=== PATIENT | female | born 1970 | race Caucasian/White ===

== ENCOUNTER 2016-05-25 07:01 | Emergency (ER) | payer OTHER ==
[~2016-05-25] VITALS: Ht 154.9 cm; Wt 71.6 kg
[~2016-05-25 07:01] MED LIST: IBUP-1428 PO; NAPR1TAB9 PO; OMEP20CA9 PO
[2016-05-25 07:05] VITALS: Ht 154.9 cm; Wt 71.6 kg
--- NOTE | 2016-05-25 09:00 | DIAGNOSTIC IMAGING REPORT ---
CHEST 2 VIEWS ROUTINE CLINICAL HISTORY: cough, chest congestion COMPARISON STUDY: 09/14/2014 FINDINGS: The cardiac and mediastinal contours are normal. There is no evidence of focal pulmonary consolidation. There is no evidence of failure. No pleural effusions are visualized.[ IMPRESSION: No active disease in the chest. Electronically signed by: Ulises Adams M.D. 05/25/2016 8:59 AM Dictated Date/Time: 05/25/2016 8:59 AM
[2016-05-25 09:27] VITALS: BP 120/70; PULSE 96; TEMP 36.8; O2SAT 99
[2016-05-25] MEDS ORDERED: ALBUTEROL HFA 8 GM INHALER INH ONE (09:30)
--- NOTE | 2016-05-26 17:10 | EMERGENCY ROOM VISIT NOTE ---
ED Visit Note First contact with patient: 08:04 CHIEF COMPLAINT: Cough, congestion, sore throat, difficulty breathing. HISTORY OF PRESENT ILLNESS: This 45-year-old white female patient complains of 8 days of gradual onset of an intermittent vigorous cough productive of white mucus. She states her chest feels congested. There is some discomfort under the sternum with coughing but no other chest pain. She has developed chills and shortness of breath when lying down. She complains that her throat is sore and that she has a lot of nasal congestion and drainage. The patient does smoke. She has been using OTC cough medication without improvement. She is also been using Tylenol and Motrin without improvement. She has a distant history of asthma but does not have an inhaler. She did speak with her PCPs office but was unable to get an appointment. REVIEW OF SYSTEMS: CARDIAC: No prior chest pain, sweating, shortness of breath, leg swelling, or irregular heart beat. GENERAL: No prior fever or chills, easy fatigue, loss of appetite, or significant weight change. GASTROINTESTINAL: No abdominal pain, vomiting, loss of appetite, or diarrhea.. PMH: Significant for history of asthma, chronic migraines, hemorrhagic ovarian cyst, and intermittent nausea Previous surgeries: Tonsillectomy Current medications: None Allergies: Amoxicillin, clavulanic acid, codeine, morphine, penicillin Family history: Significant for heart disease. Parents are living. SOCIAL HISTORY: Patient lives at home by herself. Employed. Positive tobacco use, positive EtOH use. PHYSICAL EXAM: Vital Signs: Reviewed Nurse's notes. Afebrile. Oxygen saturation is 98% on room air. MENTAL STATUS: Alert, oriented, coherent. NECK: Supple, non-tender. HEENT: Normocephalic atraumatic. Eyes PERRLA, EOMI. No conjunctiva or scleral injection. Ears TMs intact bilaterally with retraction on the right. No erythema or bulging. No hemotympanum. Canals are patent. Nares patent bilaterally with turbinate enlargement. Thick clear drainage bilaterally. No epistaxis. Oropharynx without erythema or exudate. Uvula midline, oral mucosa moist. No lesions present. Lymphatics are palpated without anterior or posterior chain enlargement or tenderness. CHEST: Good expansion bilaterally, symmetrical, no retractions. HEART: Regular and normal heart sounds, no murmur, gallop or rub. LUNGS: Breath sounds coarse and equal bilaterally. there are no rales, wheezes or areas of absent air entry. Frequent vigorous cough. EMERGENCY DEPARTMENT COURSE: Patient was given an albuterol inhaler and shown how to use it. DIAGNOSIS: Acute bronchitis DISCHARGE INSTRUCTIONS AND TREATMENT: Start using the albuterol inhaler 2 puffs every 4-6 hours as needed. Use a decongestant such as Mucinex or Mucinex D until symptoms resolve. Follow-up with her PCP as needed. Maintain hydration. Tylenol and Motrin every 6 hours as needed for discomfort. Delsym syrup can be used every 12 hours as needed for her cough. Return to the ED for any acute changes. She was reassured that I do not suspect pneumonia or PE at this time. Problem List Medical Problems: (1) Hemorrhagic cyst of ovary Status: Chronic (2) Migraine Status: Chronic (3) Tonsillectomy Status: Resolved Current/Historical Medications No Active Prescriptions or Reported Meds Allergies Coded Allergies: Amoxicillin (Verified Allergy, Severe, THROAT SWELLING, 05/25/16) Clavulanic Acid (Verified Allergy, Severe, THROAT SWELLING, 05/25/16) Penicillins (Verified Allergy, Severe, THROAT SWELLING, 05/25/16) Morphine (Verified Adverse Reaction, Intermediate, NAUSEA, 05/25/16) Codeine (Verified Adverse Reaction, Mild, VOMITING, 05/25/16) Vital Signs Date Time Temp Pulse Resp B/P Pulse Ox O2 Delivery O2 Flow Rate FiO2 05/25/16 09:27 36.8 96 20 120/70 99 Room Air 05/25/16 08:37 36.7 87 132/87 98 Room Air 05/25/16 07:05 37.0 90 18 145/85 98 Room Air Medications Administered Medications (Trade) Dose Ordered Sig/Alessandra Route Start Time Stop Time Status Last Admin Dose Admin Albuterol (Ventolin Hfa Inhaler) 2 puffs NOW ONCE INH 05/25/16 09:30 05/25/16 09:31 DC 05/25/16 09:35 2 PUFFS Departure Information Impression Primary Impression: Acute bronchitis Dispostion Home / Self-Care Prescriptions No Active Prescriptions or Reported Meds Forms ALBUTEROL INHALER INSTRUCTIONS, WORK / SCHOOL INSTRUCTIONS, HOME CARE DOCUMENTATION FORM, MOTRIN USE, TYLENOL USE, IMPORTANT VISIT INFORMATION Patient Instructions Bronchitis Acute , [facility] Additional Instructions Albuterol inhaler 2 puffs every 4-6 hours as needed for congestion/shortness of breath Use a decongestant suspect as Mucinex or Mucinex D until symptoms resolve Follow-up with your PCP as needed Maintain hydration Tylenol and Motrin every 6 hours as needed for discomfort Use Delsym syrup 2 teaspoons every 12 hours as needed for cough
== END 2016-05-25 09:44 | disposition home or self-care (01) ==
LOC: C.EDB 07:02
DX: J20.9 Acute bronchitis, unspecified (principal); F17.210 Nicotine dependence, cigarettes, uncomplicated

== ENCOUNTER 2016-09-18 21:09 | Emergency (ER) | payer OTHER ==
[~2016-09-18] VITALS: Ht 154.9 cm; Wt 70.6 kg
[2016-09-18 21:15] VITALS: TEMP 36.8; Ht 154.9 cm; Wt 70.6 kg
[2016-09-18] MEDS ORDERED: ONDANSETRON INJ 2 MG/ML 2 ML VIAL IV STA ×2 (21:29→22:40)
[2016-09-18] MEDS ORDERED: SODIUM CHLORIDE 0.9% 1000ML 1,000 ML IV STA (21:29)
[2016-09-18] MEDS ORDERED: SODIUM CHLORIDE 0.9% 1000ML 500 ML IV STA (21:29)
[2016-09-18 21:30] VITALS: O2SAT 95
[2016-09-18 21:52] LABS: BASO % 0.4 %; BASO ABS # 0.03 K/uL (0-0.2); COMPLETE YES; EOS % 1.1 %; HEMATOCRIT 33.7 % (37-47); IG% 0.1 %; LYMPH % 29.1 %; LYMPH ABS # 2.07 K/uL (1.2-3.4); MEAN CELL VOLUME 85.1 fL (80-100); MEAN CORPUSCULAR HEMOGLOBIN 28.3 pg (25-34); MEAN CORPUSCULAR HGB CONC 33.2 g/dl (32-36); MEAN PLATELET VOLUME 10.5 fL (7.4-10.4); MONO % 7.9 %; NEUT % 61.4 %; PLATELET COUNT 260 K/uL (130-400); RED BLOOD COUNT 3.96 M/uL (4.2-5.4); WHITE BLOOD COUNT 7.11 K/uL (4.8-10.8)
--- NOTE | 2016-09-18 21:59 | DIAGNOSTIC IMAGING REPORT ---
CHEST ONE VIEW PORTABLE CLINICAL HISTORY: Mental status, weakness, palpitations. COMPARISON STUDY: 05/25/2016 FINDINGS: The cardiac and mediastinal contours are normal. There is no evidence of focal pulmonary consolidation. There is no evidence of failure. No pleural effusions are visualized.[ IMPRESSION: No active disease in the chest. Electronically signed by: Ulises Adams M.D. 09/18/2016 9:58 PM Dictated Date/Time: 09/18/2016 9:58 PM
[2016-09-18 22:08] LABS: ALT/SGPT 27 U/L (12-78); BLOOD UREA NITROGEN 13 mg/dl (7-18); BUN/CREATININE RATIO 17.4 (10-20); CARBON DIOXIDE 25 mmol/L (21-32); CHLORIDE 106 mmol/L (98-107); CREATININE 0.73 mg/dl (0.60-1.20); GLUCOSE 86 mg/dl (70-99); MAGNESIUM 2.3 mg/dl (1.8-2.4); POTASSIUM 3.5 mmol/L (3.5-5.1); SODIUM 139 mmol/L (136-145)
[2016-09-18 22:19] LABS: ALKALINE PHOSPHATASE 69 U/L (45-117); AST/SGOT 18 U/L (15-37)
[2016-09-18 22:30] LABS: CALCIUM 8.8 mg/dl (8.5-10.1)
[2016-09-18] MEDS ORDERED: SODIUM CHLORIDE 0.9% 500ML 500 ML IV STA (23:42)
--- NOTE | 2016-09-19 00:02 | EMERGENCY ROOM VISIT NOTE ---
History Report prepared by Diana: Prasanna Read Under the Supervision of: Dr. Kieran Wright M.D. First contact with patient: 21:21 Chief Complaint: IRREGULAR HEARTBEAT Stated Complaint: HEART PALPATATIONS - NAUSEA History of Present Illness The patient is a 45 year old female who presents to the Emergency Room with complaints of intermittent heart palpitations for the past month. The patient describes a fluttering sensation. The palpitations are not exertional. The episodes have been becoming more frequent and usually last a few seconds. The patient does not have chest pain with the episodes. She does occasionally feel short of breath. Tonight the patient became very nauseous with her palpitations which prompted her visit to the ED. She has an appointment with her family physician tomorrow. The patient denies fevers, cough or congestion, hematemesis , or blood in her stools. The patient has never had palpitations before. She cut back on her caffeine consumption but the palpitations persisted. The patient has a history of anemia and H. Pylori infection. She denies history of thyroid disease. The patient has family history of CHF, hypertension, and stroke. Source of History: patient Onset: one month ago Position: other (heart) Quality: other (palpitations) Timing: intermittent Associated Symptoms: + SOB, + nausea, No fevers, No cough, No chest pain, No melena, No hematochezia Review of Systems See HPI for pertinent positives & negatives. A total of 10 systems reviewed and were otherwise negative. Past Medical & Surgical Medical Problems: (1) Hemorrhagic cyst of ovary (2) Migraine (3) Tonsillectomy Family History FH: heart disease Hypertension Stroke Social History Smoking Status: Never Smoker Alcohol Use: none Drug Use: none Marital Status: Housing Status: lives with family Occupation Status: employed Current/Historical Medications No Active Prescriptions or Reported Meds Allergies Coded Allergies: Amoxicillin (Verified Allergy, Severe, THROAT SWELLING, 09/18/16) Clavulanic Acid (Verified Allergy, Severe, THROAT SWELLING, 09/18/16) Penicillins (Verified Allergy, Severe, THROAT SWELLING, 09/18/16) Morphine (Verified Adverse Reaction, Intermediate, NAUSEA, 09/18/16) Codeine (Verified Adverse Reaction, Mild, VOMITING, 09/18/16) Physical Exam Vital Signs Date Time Temp Pulse Resp B/P (MAP) Pulse Ox O2 Delivery O2 Flow Rate FiO2 09/19/16 01:00 67 14 114/76 95 09/19/16 00:00 102/61 09/18/16 23:35 63 17 93 09/18/16 23:30 109/70 09/18/16 23:05 67 17 98 09/18/16 23:00 132/64 09/18/16 22:39 65 20 95 09/18/16 22:33 112/73 09/18/16 22:09 70 18 98 09/18/16 22:08 68 09/18/16 22:01 117/78 09/18/16 21:30 95 Room Air 09/18/16 21:25 95 Room Air 09/18/16 21:15 36.8 67 18 138/91 98 Room Air Physical Exam GENERAL: Patient is in no acute distress. HEENT: No acute trauma, normocephalic atraumatic, mucous membranes moist, no nasal congestion, no scleral icterus. NECK: No stridor, no adenopathy, no meningismus, trachea is midline. LUNGS: Clear to auscultation bilaterally, no wheeze, no rhonchi, breath sounds equal. HEART: Without murmurs gallops or rubs, regular rate and rhythm. ABDOMEN: Soft, nontender, bowel sounds positive, no hernias, no peritonitis. EXTREMITIES: No cyanosis or edema, full range of motion of all the joints without pain or difficulty, no signs for acute trauma. NEUROLOGIC: Oriented x 3, no acute motor or sensory deficits, no focal weakness. SKIN: No rash, no jaundice, no diaphoresis. Medical Decision & Procedures ER Provider Diagnostic Interpretation: X-ray results as stated below per interpretation by me and the radiologist: CHEST ONE VIEW PORTABLE CLINICAL HISTORY: Mental status, weakness, palpitations. COMPARISON STUDY: 05/25/2016 FINDINGS: The cardiac and mediastinal contours are normal. There is no evidence of focal pulmonary consolidation. There is no evidence of failure. No pleural effusions are visualized.[ IMPRESSION: No active disease in the chest. Electronically signed by: Ulises Adams M.D. 09/18/2016 9:58 PM Dictated Date/Time: 09/18/2016 9:58 PM Laboratory Results 09/18/16 21:40 Red Blood Count 3.96, Mean Corpuscular Volume 85.1, Mean Corpuscular Hemoglobin 28.3, Mean Corpuscular Hemoglobin Concent 33.2, Mean Platelet Volume 10.5, Neutrophils (%) (Auto) 61.4, Lymphocytes (%) (Auto) 29.1, Monocytes (%) (Auto) 7.9, Eosinophils (%) (Auto) 1.1, Basophils (%) (Auto) 0.4, Neutrophils # (Auto) 4.36, Lymphocytes # (Auto) 2.07, Monocytes # (Auto) 0.56, Eosinophils # (Auto) 0.08, Basophils # (Auto) 0.03 09/18/16 21:40 Test 09/18/16 00:00 09/18/16 21:40 Urine Color ORANGE Urine Appearance CLEAR (CLEAR) Urine pH 6.0 (4.5-7.5) Urine Specific [place] 1.011 (1.000-1.030) Urine Protein NEG (NEG) Urine Glucose (UA) NEG (NEG) Urine Ketones TRACE (NEG) Urine Occult Blood 3+ (NEG) Urine Nitrite NEG (NEG) Urine Bilirubin NEG (NEG) Urine Urobilinogen NEG (NEG) Urine Leukocyte Esterase TRACE (NEG) Urine WBC (Auto) 1-5 /hpf (0-5) Urine RBC (Auto) 0-4 /hpf (0-4) Urine Hyaline Casts (Auto) 0 /lpf (0-5) Urine Epithelial Cells (Auto) 10-20 /lpf (0-5) Urine Bacteria (Auto) NEG (NEG) White Blood Count 7.11 K/uL (4.8-10.8) Red Blood Count 3.96 M/uL (4.2-5.4) Hemoglobin 11.2 g/dL (12.0-16.0) Hematocrit 33.7 % (37-47) Mean Corpuscular Volume 85.1 fL (80-100) Mean Corpuscular Hemoglobin 28.3 pg (25-34) Mean Corpuscular Hemoglobin Concent 33.2 g/dl (32-36) Platelet Count 260 K/uL (130-400) Mean Platelet Volume 10.5 fL (7.4-10.4) Neutrophils (%) (Auto) 61.4 % Lymphocytes (%) (Auto) 29.1 % Monocytes (%) (Auto) 7.9 % Eosinophils (%) (Auto) 1.1 % Basophils (%) (Auto) 0.4 % Neutrophils # (Auto) 4.36 K/uL (1.4-6.5) Lymphocytes # (Auto) 2.07 K/uL (1.2-3.4) Monocytes # (Auto) 0.56 K/uL (0.11-0.59) Eosinophils # (Auto) 0.08 K/uL (0-0.5) Basophils # (Auto) 0.03 K/uL (0-0.2) RDW Standard Deviation 46.8 fL (36.4-46.3) RDW Coefficient of Variation 15.0 % (11.5-14.5) Immature Granulocyte % (Auto) 0.1 % Immature Granulocyte # (Auto) 0.01 K/uL (0.00-0.02) Anion Gap 8.0 mmol/L (3-11) Est Creatinine Clear Calc Drug Dose 86.5 ml/min Estimated GFR () 114.5 Estimated GFR (Non- 98.8 BUN/Creatinine Ratio 17.4 (10-20) Calcium Level 8.8 mg/dl (8.5-10.1) Magnesium Level 2.3 mg/dl (1.8-2.4) Total Bilirubin 1.2 mg/dl (0.2-1) Aspartate Amino Transf (AST/SGOT) 18 U/L (15-37) Alanine Aminotransferase (ALT/SGPT) 27 U/L (12-78) Alkaline Phosphatase 69 U/L (45-117) Troponin I < 0.015 ng/ml (0-0.045) Total Protein 7.6 gm/dl (6.4-8.2) Albumin 3.8 gm/dl (3.4-5.0) Globulin 3.8 gm/dl (2.5-4.0) Albumin/Globulin Ratio 1.0 (0.9-2) Thyroid Stimulating Hormone (TSH) 3.350 uIu/ml (0.300-4.500) Laboratory results reviewed by me. Medications Administered Medications (Trade) Dose Ordered Sig/Alessandra Route Start Time Stop Time Status Last Admin Dose Admin Sodium Chloride 500 ml @ 999 mls/hr Q31M STAT IV 09/18/16 21:29 09/18/16 21:59 DC 09/18/16 21:45 999 MLS/HR Ondansetron HCl (Zofran Inj) 4 mg NOW STAT IV 09/18/16 21:29 09/18/16 21:32 DC 09/18/16 21:45 4 MG Sodium Chloride 1,000 ml @ 200 mls/hr Q5H STAT IV 09/18/16 21:29 09/19/16 01:53 DC 09/18/16 21:45 200 MLS/HR Ondansetron HCl (Zofran Inj) 4 mg NOW STAT IV 09/18/16 22:40 09/18/16 22:41 DC 09/18/16 23:04 4 MG Sodium Chloride 500 ml @ 999 mls/hr Q31M STAT IV 09/18/16 23:42 09/19/16 00:12 DC 09/19/16 00:00 999 MLS/HR Ketorolac Tromethamine (Toradol Inj) 30 mg NOW STAT IV 09/19/16 00:15 09/19/16 00:17 DC 09/19/16 00:21 30 MG Ondansetron HCl (ZOFRAN ODT 4MG Home Pack) 1 homepack UD ONCE PO 09/19/16 00:45 09/19/16 00:46 DC 09/19/16 00:58 1 HOMEPACK ECG Indication: palpitations Rate (beats per minute): 65 Rhythm: normal sinus Findings: no acute ischemic change, no ectopy, other (no dysrhythmia) ED Course 2124: The patient was evaluated in room C9. A complete history and physical exam was performed. 9: NSS 1000 ml @ 200 mls/hr, Zofran 4 mg IV, NSS 500 ml @ 999 mls/hr. 2240: Zofran 4 mg IV. 2342: NSS 500 ml @ 999 mls/hr. 0015: Toradol 30 mg IV. 0035: Reassessed the patient. Discussed the workup with the patient. She verbalized understanding and agreement. The patient is ready for discharge. 0045: Zofran Odt 4 mg PO homepack. Medical Decision Differential diagnosis includes electrolyte imbalance, anemia, dehydration, hormonal changes, thyroid disorder, UTI, cardiomegaly or dysrhythmia. Blood Pressure Screening: Patient was found to have normal blood pressure on screening and does not require follow-up. Medication Reconciliation: I attest that I have personally reviewed the patient' s current medication list. There is no leukocytosis or concerning anemia. No significant electrolyte abnormality, kidney failure, hepatitis. The patient appears to be in a euthyroid state. Urinalysis shows some hematuria but the patient is on her menstrual cycle, no signs of infection. Chest x-ray shows no CHF or cardiomegaly. EKG shows a normal sinus rhythm, no acute ischemia, no dysrhythmia. Cardiac enzyme testing times one is not consistent with acute cardiac injury. Patient received IV Zofran for nausea, she was given IV saline for hydration. She received IV Toradol for some menstrual cramps. The patient presents with palpitations, her workup is benign. I do think she be discharged with outpatient follow-up. She may require a Holter monitor. She was encouraged to rest and to stay well-hydrated. If worsening, she can return. Impression Primary Impression: Palpitations Additional Impression: Nausea Scribe Attestation The scribe's documentation has been prepared under my direction and personally reviewed by me in its entirety. I confirm that the note above accurately reflects all work, treatment, procedures, and medical decision making performed by me. Departure Information Dispostion Home / Self-Care Prescriptions No Active Prescriptions or Reported Meds Referrals Justine Tello D.O. (PCP) Forms HOME CARE DOCUMENTATION FORM, IMPORTANT VISIT INFORMATION Patient Instructions My [facility] Additional Instructions zofran 1 tab every 6 hours for nausea fluids rest see your doctor for recheck tomorrow as scheduled--possible need for holter monitoring testing today was ok return if worsening Problem Qualifiers
[2016-09-19 00:06] LABS: MANUAL MICROSCOPIC REQUIRED? NO; REVIEW REQ? NO; URINE APPEARANCE CLEAR (CLEAR); URINE BILIRUBIN NEG (NEG); URINE COLOR ORANGE; URINE NITRITE NEG (NEG); URINE SPECIFIC GRAVITY 1.011 (1.000-1.030); UROBILINOGEN NEG (NEG); ZZUR CULT IF INDIC CLEAN CATCH NO
[2016-09-19] MEDS ORDERED: KETOROLAC TROMETHAMINE 30 MG/ML VIAL IV STA (00:15)
[2016-09-19] MEDS ORDERED: ONDANSETRON HOME PACK 4MG OD TAB PO ONE (00:45)
[2016-09-19 01:00] VITALS: BP 114/76; PULSE 67; O2SAT 95
== END 2016-09-19 01:00 | disposition home or self-care (01) ==
LOC: C.EDB 21:10 → C.EDC 09-19 01:00
DX: R00.2 Palpitations (principal); R11.0 Nausea; Z82.49 Family history of ischemic heart disease and other diseases of the circulatory system

== ENCOUNTER → 2016-09-20 | Outpatient (CLI) | payer OTHER ==
[~2016-09-20] MED LIST changes: +ACET-1311 PO; +IBUP-1050 PO; -IBUP-1428 PO; -NAPR1TAB9 PO; -OMEP20CA9 PO; +ONDA4TAB10 SL; +OXYC1TAB3 PO
[2016-09-20 15:17] LABS: CHOLESTEROL/HDL RATIO 2.5
== END | disposition home or self-care (01) ==
LOC: C.LAB 14:08
PROVIDERS: ATTEND Student in an Organized Health Care Education/Training Program
DX: Z13.220 Encounter for screening for lipoid disorders (principal); Z13.1 Encounter for screening for diabetes mellitus

== ENCOUNTER → 2016-12-09 | Outpatient (CLI) | payer OTHER ==
[2016-12-09 16:40] LABS: PREG INTERNAL NEGATIVE QC NEG CLEAR BACKGROUND; PREG INTERNAL POSITIVE QC POS CONTROL LINE
[2016-12-09 16:43] LABS: URINE APPEARANCE CLEAR (CLEAR); URINE BILIRUBIN NEG (NEG); URINE COLOR DK YELLOW; URINE NITRITE NEG (NEG); URINE SPECIFIC GRAVITY 1.033 (1.000-1.030); UROBILINOGEN NEG (NEG)
[2016-12-09 16:44] LABS: MANUAL MICROSCOPIC REQUIRED? NO; REVIEW REQ? NO
== END | disposition home or self-care (01) ==
LOC: C.LABSPEC 15:42
PROVIDERS: ATTEND Obstetrics & Gynecology
DX: R10.32 Left lower quadrant pain (principal)

== ENCOUNTER → 2016-12-27 | Outpatient (CLI) | payer OTHER ==
[2016-12-27 16:51] LABS: URINE APPEARANCE CLEAR (CLEAR); URINE BILIRUBIN NEG (NEG); URINE COLOR YELLOW; URINE EPITHELIAL CELL AUTO >30 /lpf (0-5); URINE NITRITE NEG (NEG); URINE SPECIFIC GRAVITY 1.033 (1.000-1.030); UROBILINOGEN NEG (NEG)
[2016-12-27 16:52] LABS: MANUAL MICROSCOPIC REQUIRED? NO; REVIEW REQ? NO
== END | disposition home or self-care (01) ==
LOC: C.LAB 13:17
PROVIDERS: ATTEND Family Medicine
DX: R10.9 Unspecified abdominal pain (principal)

== ENCOUNTER → 2017-01-01 | Outpatient (CLI) | payer OTHER ==
--- NOTE | 2017-01-01 12:38 | DIAGNOSTIC IMAGING REPORT ---
RENAL ULTRASOUND HISTORY: LEFT FLANK PAIN COMPARISON: Abdominal and pelvis CT 10/08/2015. FINDINGS: Right kidney: 11.1 cm. No hydronephrosis. Normal corticomedullary differentiation and cortical thickness. Left kidney: 11.1 cm. No hydronephrosis. Normal corticomedullary differentiation and cortical thickness. Bladder: No bladder wall thickening. The ureteral jets are not identified during the examination. Hepatic steatosis. IMPRESSION: Normal renal ultrasound. Hepatic steatosis. Electronically signed by: Doe Loco M.D. 01/01/2017 12:37 PM Dictated Date/Time: 01/01/2017 12:36 PM
== END ==
LOC: C.ULTR 11:49
PROVIDERS: ATTEND Family Medicine
DX: R10.9 Unspecified abdominal pain (principal)

== ENCOUNTER 2017-03-08 15:31 | Emergency (ER) | payer OTHER ==
[~2017-03-08] VITALS: Ht 154.9 cm; Wt 72.9 kg
[2017-03-08 15:43] VITALS: TEMP 36.8; Ht 154.9 cm; Wt 72.9 kg
[2017-03-08] MEDS ORDERED: SODIUM CHLORIDE 0.9% 1000ML 1,000 ML IV STA (16:10)
[2017-03-08] MEDS ORDERED: ONDANSETRON INJ 2 MG/ML 2 ML VIAL IV STA (16:10)
[2017-03-08] MEDS ORDERED: FENTANYL CITRATE INJ 50 MCG/1 ML 2 ML VIAL IV PRN (16:15)
--- NOTE | 2017-03-08 16:26 | EMERGENCY ROOM VISIT NOTE ---
History Report prepared by Diana: Zayra Loza Under the Supervision of: Dr. Vlad Dunne D.O. First contact with patient: 16:07 Chief Complaint: PELVIC PAIN Stated Complaint: MISSED 1 [address] [address] AND HEAVY MENSES PAIN RLQ History of Present Illness The patient is a 46 year old female who presents to the Emergency Room with complaints of worsening left sided pelvic pain beginning this morning. The patient states she is usually early for her period but her period began 7 days late this cycle. She reports when her period started yesterday, seven days late , she was only spotting. Today, the patient reports heavy bleeding with clots which is abnormal for her. She notes going through 4 pads and having nausea. She has a history of ovarian cysts but states her pain then is unlike when she had hemorrhagic cysts. The patient notes three previous pregnancies. Source of History: patient Associated Symptoms: + nausea Review of Systems See HPI for pertinent positives & negatives. A total of 10 systems reviewed and were otherwise negative. Past Medical & Surgical Medical Problems: (1) Hemorrhagic cyst of ovary (2) Migraine (3) Tonsillectomy Family History FH: heart disease Hypertension Stroke Social History Smoking Status: Never Smoker Alcohol Use: none Drug Use: none Marital Status: Housing Status: lives with family Occupation Status: employed Current/Historical Medications Scheduled Ondasetron Odt (Zofran Odt), 4 MG SL Q6H Scheduled PRN Acetaminophen (Tylenol), 650 MG PO Q4H PRN for Pain or Fever Ibuprofen (Advil), 200-600 MG PO Q4H PRN for Pain or Fever Oxycodone Immediate Rel Tab (Roxicodone Ir), 1 TAB PO Q6 PRN for Severe Pain Allergies Coded Allergies: Amoxicillin (Verified Allergy, Severe, THROAT SWELLING, 03/08/17) Clavulanic Acid (Verified Allergy, Severe, THROAT SWELLING, 03/08/17) Penicillins (Verified Allergy, Severe, THROAT SWELLING, 03/08/17) Morphine (Verified Adverse Reaction, Intermediate, NAUSEA, 03/08/17) Codeine (Verified Adverse Reaction, Mild, VOMITING, 03/08/17) Physical Exam Vital Signs Date Time Temp Pulse Resp B/P (MAP) Pulse Ox O2 Delivery O2 Flow Rate FiO2 03/08/17 19:19 71 16 126/73 100 Room Air 03/08/17 18:11 58 18 109/72 98 Room Air 03/08/17 17:08 64 03/08/17 17:08 98 Room Air 03/08/17 15:43 36.8 75 20 135/71 96 Room Air Physical Exam GENERAL: Patient is awake, alert, and in no acute distress. Patient is anxious and uncomfortable. EYES: The conjunctivae are clear. The pupils are round and reactive. EARS, NOSE, MOUTH AND THROAT: The nose is without any evidence of any deformity. Mucous membranes are moist tongue is midline NECK: The neck is nontender and supple. RESPIRATORY: Normal respiratory effort is noted there is no evidence of wheezing rhonchi or rales CARDIOVASCULAR: Regular rate and rhythm noted there no murmurs rubs or gallops normal S1 normal S2 GASTROINTESTINAL: The abdomen is mildly distended but soft. Bowel sounds are present in all quadrants. Abdomen is nontender BACK: Left suprapubic tenderness, no midline tenderness noted. Left CVA tenderness noted. MUSCULOSKELETAL/EXTREMITIES: There is no evidence of gross deformity full range of motion is noted in the hips and shoulders SKIN: There is no obvious evidence of any rash. There are no petechiae, pallor or cyanosis noted. NEUROLOGIC: Patient is awake alert and oriented x3 strength is symmetric patellar reflexes are 2+ bilaterally Medical Decision & Procedures ER Provider Diagnostic Interpretation: Radiology results as stated below per my review and radiologist interpretation: PELVIC ULTRASOUND FINDINGS: The uterus measures 8.5 x 5.7 x 6.1 cm. Endometrium measures 8 mm in thickness. The right ovary is sonographically normal, measuring 2.7 x 2 x 1.4 cm. The left ovary measures 4.8 x 2.9 x 5 cm. A 3.1 cm left ovarian cyst is noted. There is an additional cyst or dominant follicle that measures 2.3 cm. Color flow is identified within each ovary. Trace free fluid is likely physiologic. IMPRESSION: 1. Endometrial thickness of 8 mm which is within normal limits if premenopausal. 2. 3.1 cm suspected left ovarian cyst with an additional cyst or dominant follicle within the left ovary. A follow-up pelvic ultrasound in 6 weeks to ensure resolution is recommended however these have benign imaging characteristics. Electronically signed by: Gino Rider M.D. Laboratory Results 03/08/17 16:35 Red Blood Count 3.99, Mean Corpuscular Volume 84.7, Mean Corpuscular Hemoglobin 26.8, Mean Corpuscular Hemoglobin Concent 31.7, Mean Platelet Volume 10.8, Neutrophils (%) (Auto) 64.5, Lymphocytes (%) (Auto) 26.5, Monocytes (%) (Auto) 7.4, Eosinophils (%) (Auto) 1.0, Basophils (%) (Auto) 0.4, Neutrophils # (Auto) 5.42, Lymphocytes # (Auto) 2.23, Monocytes # (Auto) 0.62, Eosinophils # (Auto) 0.08, Basophils # (Auto) 0.03 03/08/17 16:35 Test 03/08/17 16:35 03/08/17 18:05 White Blood Count 8.40 K/uL (4.8-10.8) Red Blood Count 3.99 M/uL (4.2-5.4) Hemoglobin 10.7 g/dL (12.0-16.0) Hematocrit 33.8 % (37-47) Mean Corpuscular Volume 84.7 fL (80-100) Mean Corpuscular Hemoglobin 26.8 pg (25-34) Mean Corpuscular Hemoglobin Concent 31.7 g/dl (32-36) Platelet Count 267 K/uL (130-400) Mean Platelet Volume 10.8 fL (7.4-10.4) Neutrophils (%) (Auto) 64.5 % Lymphocytes (%) (Auto) 26.5 % Monocytes (%) (Auto) 7.4 % Eosinophils (%) (Auto) 1.0 % Basophils (%) (Auto) 0.4 % Neutrophils # (Auto) 5.42 K/uL (1.4-6.5) Lymphocytes # (Auto) 2.23 K/uL (1.2-3.4) Monocytes # (Auto) 0.62 K/uL (0.11-0.59) Eosinophils # (Auto) 0.08 K/uL (0-0.5) Basophils # (Auto) 0.03 K/uL (0-0.2) RDW Standard Deviation 50.5 fL (36.4-46.3) RDW Coefficient of Variation 16.3 % (11.5-14.5) Immature Granulocyte % (Auto) 0.2 % Immature Granulocyte # (Auto) 0.02 K/uL (0.00-0.02) Prothrombin Time 9.8 SECONDS (9.0-12.0) Prothromb Time International Ratio 0.9 (0.9-1.1) Activated Partial Thromboplast Time 24.5 SECONDS (21.0-31.0) Partial Thromboplastin Ratio 0.9 Anion Gap 2.0 mmol/L (3-11) Est Creatinine Clear Calc Drug Dose 68.3 ml/min Estimated GFR () 84.8 Estimated GFR (Non- 73.2 BUN/Creatinine Ratio 9.9 (10-20) Calcium Level 8.5 mg/dl (8.5-10.1) Total Bilirubin 0.8 mg/dl (0.2-1) Aspartate Amino Transf (AST/SGOT) 18 U/L (15-37) Alanine Aminotransferase (ALT/SGPT) 29 U/L (12-78) Alkaline Phosphatase 73 U/L (45-117) Total Protein 7.7 gm/dl (6.4-8.2) Albumin 3.6 gm/dl (3.4-5.0) Globulin 4.1 gm/dl (2.5-4.0) Albumin/Globulin Ratio 0.9 (0.9-2) Human Chorionic Gonadotropin, Qual NEG (NEG) Human Chorionic Gonadotropin, Quant < 1 mIU/mL Urine Color RED Urine Appearance CLOUDY (CLEAR) Urine pH 5.5 (4.5-7.5) Urine Specific [place] 1.013 (1.000-1.030) Urine Protein 1+ (NEG) Urine Glucose (UA) NEG (NEG) Urine Ketones NEG (NEG) Urine Occult Blood 3+ (NEG) Urine Nitrite NEG (NEG) Urine Bilirubin NEG (NEG) Urine Urobilinogen NEG (NEG) Urine Leukocyte Esterase MODERATE (NEG) Urine WBC (Auto) >30 /hpf (0-5) Urine RBC (Auto) >30 /hpf (0-4) Urine Hyaline Casts (Auto) 0 /lpf (0-5) Urine Epithelial Cells (Auto) >30 /lpf (0-5) Urine Bacteria (Auto) 1+ (NEG) Urine Renal Epithelial Cells /lpf (0-5) Urine Pathogenic Casts /lpf (0) Laboratory results per my review. Medications Administered Medications (Trade) Dose Ordered Sig/Alessandra Route Start Time Stop Time Status Last Admin Dose Admin Ondansetron HCl (Zofran Inj) 4 mg NOW STAT IV 03/08/17 16:10 03/08/17 16:13 DC 03/08/17 17:07 4 MG Sodium Chloride 1,000 ml @ 999 mls/hr Q1H1M STAT IV 03/08/17 16:10 03/08/17 17:10 DC 03/08/17 17:07 999 MLS/HR Fentanyl Citrate (Fentanyl Inj) 50 mcg Q20M PRN IV 03/08/17 16:15 03/08/17 19:42 DC 03/08/17 17:08 50 MCG Ketorolac Tromethamine (Toradol Inj) 30 mg NOW STAT IV 03/08/17 17:51 03/08/17 17:53 DC 03/08/17 18:22 30 MG Ondansetron HCl (Zofran Inj) 4 mg STK-MED ONCE .ROUTE 03/08/17 18:13 03/08/17 18:14 DC 03/08/17 18:23 4 MG Oxycodone HCl (Roxicodone Immediate Rel 5MG Home Pack) 1 homepack UD ONCE PO 03/08/17 19:00 03/08/17 19:01 DC 03/08/17 19:18 1 HOMEPACK Ondansetron HCl (ZOFRAN ODT 4MG Home Pack) 1 homepack UD ONCE PO 03/08/17 19:00 03/08/17 19:01 DC 03/08/17 19:18 1 HOMEPACK ED Course 1608: The patient was evaluated in room A9B. A complete history and physical examination were performed. 1610: Ordered NSS 1,000 ml @ 999 mls/hr IV, Zofran Inj 4 mg IV. 1615: Ordered Fentanyl Inj 50 mcg IV. 1751: Ordered Fentanyl Citrate 50 mcg IV. 1813: Ordered Zofran Inj 4 mg .ROUTE. 1900: Ordered Ondansetron HCl 1 homepack PO, Oxycodone HCl 1 homepack PO. 1905: Upon reevaluation, the patient is resting comfortably. I discussed the results and treatment plan with her. She verbalized agreement of the treatment plan. The patient was discharged home. Medical Decision Differential diagnosis: Etiologies such as ectopic , dysfunction uterine bleeding, bleeding dyscrasia, trauma, infection, as well as others were entertained. Nursing notes reviewed. The patient is a 46-year-old female who presented to the emergency department for evaluation of vaginal bleeding and left-sided pelvic pain. The patient thought she could be . The patient's process was negative. She was treated with IV fluids IV pain medicine and IV antiemetics. On subsequent reevaluation she was feeling much better. I discussed the patient's laboratory and radiographic studies with her. She was encouraged to rest and avoid any strenuous activity. She was also encouraged to call her family doctor and her primary [employer] physician to schedule a follow-up appointment. She also encouraged to return to the emergency department immediately if symptoms change worsen or the need arises. Medication Reconcilliation Current Medication List: was personally reviewed by me Blood Pressure Screening Patient's blood pressure: Normal blood pressure Impression Primary Impression: Vaginal bleeding Additional Impression: Ovarian cyst Scribe Attestation The scribe's documentation has been prepared under my direction and personally reviewed by me in its entirety. I confirm that the note above accurately reflects all work, treatment, procedures, and medical decision making performed by me. Departure Information Dispostion Home / Self-Care Prescriptions Ondasetron Odt (ZOFRAN ODT) 4 Mg Tab 4 MG SL Q6H for Nausea, #10 TAB Prov: Vlad Dunne, DO 03/08/17 Oxycodone Immediate Rel Tab (ROXICODONE IR) 5 Mg Tab 1 TAB PO Q6 Y for Severe Pain, #20 TAB Prov: Vlad Dunne, DO 03/08/17 Referrals Justine Tello D.O. (PCP) Forms HOME CARE DOCUMENTATION FORM, IMPORTANT VISIT INFORMATION, WORK / SCHOOL INSTRUCTIONS Patient Instructions Cysts Ovarian, ED Bleed Irregular Vaginal, [facility] Additional Instructions Rest and avoid any strenuous activity. Continue all medications as prescribed. Call your [employer] physician to schedule a follow-up appointment versus possible. Return to the emergency department immediately if symptoms change worsen or the need arises. Problem Qualifiers Additional Impression: Ovarian cyst Laterality: left Qualified Codes: N83.202 - Unspecified ovarian cyst, left side
[2017-03-08 16:55] LABS: BASO % 0.4 %; BASO ABS # 0.03 K/uL (0-0.2); COMPLETE YES; HEMATOCRIT 33.8 % (37-47); IG% 0.2 %; LYMPH % 26.5 %; LYMPH ABS # 2.23 K/uL (1.2-3.4); MEAN CELL VOLUME 84.7 fL (80-100); MEAN CORPUSCULAR HEMOGLOBIN 26.8 pg (25-34); MEAN CORPUSCULAR HGB CONC 31.7 g/dl (32-36); MEAN PLATELET VOLUME 10.8 fL (7.4-10.4); MONO % 7.4 %; NEUT % 64.5 %; PLATELET COUNT 267 K/uL (130-400); RED BLOOD COUNT 3.99 M/uL (4.2-5.4)
[2017-03-08 17:03] LABS: INR 0.9 (0.9-1.1); PARTIAL THROMBOPLASTIN RATIO 0.9; PROTHROMBIN TIME (PATIENT) 9.8 SECONDS (9.0-12.0)
[2017-03-08] MEDS ORDERED: ACET-1311 PO (17:03)
[2017-03-08] MEDS ORDERED: IBUP-1050 PO (17:03)
[2017-03-08 17:08] VITALS: O2SAT 98
[2017-03-08 17:14] LABS: PREG INTERNAL NEGATIVE QC NEG CLEAR BACKGROUND; PREG INTERNAL POSITIVE QC POS CONTROL LINE
[2017-03-08 17:17] LABS: BUN/CREATININE RATIO 9.9 (10-20); CALCIUM 8.5 mg/dl (8.5-10.1); CREATININE 0.93 mg/dl (0.60-1.20); POTASSIUM 3.8 mmol/L (3.5-5.1)
[2017-03-08 17:20] LABS: ALB/GLOB RATIO 0.9 (0.9-2)
[2017-03-08] MEDS ORDERED: KETOROLAC TROMETHAMINE 30 MG/ML VIAL IV STA (17:51)
--- NOTE | 2017-03-08 18:08 | DIAGNOSTIC IMAGING REPORT ---
PELVIC ULTRASOUND CLINICAL HISTORY: Bleeding. COMPARISON STUDY: Pelvic ultrasound July 26, [address] of the abdomen and pelvis October 08, 2015. TECHNIQUE: Transabdominal and transvaginal sonography of the pelvis was performed. FINDINGS: The uterus measures 8.5 x 5.7 x 6.1 cm. Endometrium measures 8 mm in thickness. The right ovary is sonographically normal, measuring 2.7 x 2 x 1.4 cm. The left ovary measures 4.8 x 2.9 x 5 cm. A 3.1 cm left ovarian cyst is noted. There is an additional cyst or dominant follicle that measures 2.3 cm. Color flow is identified within each ovary. Trace free fluid is likely physiologic. IMPRESSION: 1. Endometrial thickness of 8 mm which is within normal limits if premenopausal. 2. 3.1 cm suspected left ovarian cyst with an additional cyst or dominant follicle within the left ovary. A follow-up pelvic ultrasound in 6 weeks to ensure resolution is recommended however these have benign imaging characteristics. Electronically signed by: Gino Rider M.D. 03/08/2017 6:07 PM Dictated Date/Time: 03/08/2017 6:02 PM
[2017-03-08] MEDS ORDERED: ONDANSETRON INJ 2 MG/ML 2 ML VIAL ONE (18:13)
[2017-03-08 18:26] LABS: URINE BILIRUBIN NEG (NEG); URINE EPITHELIAL CELL AUTO >30 /lpf (0-5); URINE NITRITE NEG (NEG); URINE PH 5.5 (4.5-7.5); URINE SPECIFIC GRAVITY 1.013 (1.000-1.030); UROBILINOGEN NEG (NEG)
[2017-03-08 18:29] LABS: URINE APPEARANCE CLOUDY (CLEAR); URINE COLOR RED
[2017-03-08 18:30] LABS: MANUAL MICROSCOPIC REQUIRED? NO; REVIEW REQ? YES
[2017-03-08] MEDS ORDERED: OXYC1TAB3 PO (18:52)
[2017-03-08] MEDS ORDERED: ONDA4TAB10 SL (18:52)
[2017-03-08] MEDS ORDERED: ONDANSETRON HOME PACK 4MG OD TAB PO ONE (19:00)
[2017-03-08] MEDS ORDERED: OXYCODONE IR HOME PACK PO ONE (19:00)
[2017-03-08 19:19] VITALS: BP 126/73; PULSE 71; O2SAT 100
== END 2017-03-08 19:24 | disposition home or self-care (01) ==
LOC: C.EDB 15:32 → C.EDA 19:24
DX: N93.9 Abnormal uterine and vaginal bleeding, unspecified (principal); N83.202 Unspecified ovarian cyst, left side; Z82.49 Family history of ischemic heart disease and other diseases of the circulatory system; Z82.0 Family history of epilepsy and other diseases of the nervous system

== ENCOUNTER → 2017-04-16 | Outpatient (CLI) | payer OTHER ==
--- NOTE | 2017-04-16 08:52 | DIAGNOSTIC IMAGING REPORT ---
PELVIC COMPLETE NON OB HISTORY: 46 years-old Female OVARIAN BENIGN NEOPLASM 3.1 cm left ovarian cyst seen on comparison study. COMPARISON: Pelvic ultrasound 03/08/2017 TECHNIQUE: Multiple real-time sonogram images of the deep pelvic structures were obtained transabdominally and transvaginally assessing grayscale appearance and color spectral flow. FINDINGS: TRANSABDOMINAL: Anteflexed uterus measures 8.6 x 5.2 x 5.0 cm. TRANSVAGINAL: Left ovary measures 3.0 x 3.4 x 3.0 cm. Cystic appearing lesion within left ovary is seen measuring 2.0 x 1.8 x 2.0 cm suggesting a dominant follicle. Arterial inflow and venous outflow is seen within the left ovary. The right ovary measures 2.6 x 2.4 x 1.5 cm. There is a complex centrally hypoechoic lesion within the right ovary measuring 1.2 x 1.2 x 1.2 cm with probable follicle within the left ovary measuring up to 1.1 cm. No evidence of right ovarian torsion. Endometrium appears ill-defined and is mildly thickened, 1.8 cm. Trace free pelvic fluid, likely physiologic. IMPRESSION: 1. Ill-defined thickened endometrium measures up to 1.8 cm. 2. Hypoechoic mildly complex lesion of the right ovary measuring 1.2 cm suggests involuting follicle. 3. 2.0 cm cystic lesion of the left ovary suggests a follicle. Previously noted 3.1 cm left ovarian cystic lesion not identified. 4. No evidence of ovarian torsion. The above report was generated using voice recognition software. It may contain grammatical, syntax or spelling errors. Electronically signed by: Donnell Lewis M.D. 04/16/2017 8:50 AM Dictated Date/Time: 04/16/2017 8:46 AM
== END | disposition home or self-care (01) ==
LOC: C.ULTR 07:49
PROVIDERS: ATTEND Obstetrics & Gynecology
DX: D27.9 Benign neoplasm of unspecified ovary (principal)

== ENCOUNTER → 2017-04-24 | Outpatient (CLI) | payer OTHER | END | disposition home or self-care (01) | LOC: C.PAPS 13:36 | PROVIDERS: ATTEND Obstetrics & Gynecology | DX: Z12.4 Encounter for screening for malignant neoplasm of cervix (principal) ==

== ENCOUNTER → 2017-05-25 | Outpatient (CLI) | payer OTHER ==
[2017-05-25 10:25] LABS: FOLLICLE STIMULAT HORMONE 15.96 IU/L
== END | disposition home or self-care (01) ==
LOC: C.LAB 08:40
PROVIDERS: ATTEND Obstetrics & Gynecology
DX: N97.9 Female infertility, unspecified (principal)

== ENCOUNTER 2017-07-31 10:33 | Emergency (ER) | payer OTHER ==
[~2017-07-31] VITALS: Ht 154.9 cm; Wt 66.6 kg
[2017-07-31 10:46] VITALS: TEMP 36.7
[2017-07-31] MEDS ORDERED: SODIUM CHLORIDE 0.9% 1000ML 1,000 ML IV STA (11:05)
[2017-07-31] MEDS ORDERED: ONDANSETRON INJ 2 MG/ML 2 ML VIAL IV STA (11:08)
[2017-07-31 11:15] VITALS: O2SAT 98; Ht 154.9 cm; Wt 66.6 kg
[2017-07-31] MEDS ORDERED: FENTANYL CITRATE INJ 50 MCG/1 ML 2 ML VIAL IV PRN (11:15)
--- NOTE | 2017-07-31 11:15 | EMERGENCY ROOM VISIT NOTE ---
History Report prepared by Leannibe: Alicia Reza Under the Supervision of: Dr. Vlad Dunne D.O. First contact with patient: 10:51 Chief Complaint: VAGINAL BLEEDING Stated Complaint: POSSIBLE MISCARRIAGE History of Present Illness The patient is a 46 year old female who presents to the Emergency Room with complaints of persistent vaginal bleeding that started earlier this morning. She is 5 weeks with 3 positive tests. This morning she passed tissue and bleeding with clots. She also complains of abdominal cramping and some low back pain, rating her discomfort as a 7/10 in severity. Her last normal menstrual period was on June 20, 2017. She has been 3 times in the past and this is her 4th . She has never experienced a miscarriage or ectopic . Source of History: patient Onset: early this morning Position: pelvis (vagina) Quality: other (bleeding) Timing: other (persistent) Associated Symptoms: + abdominal pain, + back pain Review of Systems See HPI for pertinent positives & negatives. A total of 10 systems reviewed and were otherwise negative. Past Medical & Surgical Medical Problems: (1) Hemorrhagic cyst of ovary (2) Migraine (3) Tonsillectomy Family History FH: heart disease Hypertension Stroke Social History Smoking Status: Never Smoker Alcohol Use: none Drug Use: none Marital Status: Housing Status: lives with family Occupation Status: employed Current/Historical Medications Scheduled Docusate Sodium (Colace), 1 CAP PO QAM Multivit/Min/Iron/Fol Ac/Pren ( Vitamin), 1 TAB PO QAM Scheduled PRN Acetaminophen (Tylenol), 650 MG PO Q4H PRN for Pain or Fever Allergies Coded Allergies: Amoxicillin (Verified Allergy, Severe, THROAT SWELLING, 07/31/17) Clavulanic Acid (Verified Allergy, Severe, THROAT SWELLING, 07/31/17) Penicillins (Verified Allergy, Severe, THROAT SWELLING, 07/31/17) Morphine (Verified Adverse Reaction, Intermediate, NAUSEA, 07/31/17) Codeine (Verified Adverse Reaction, Mild, VOMITING, 07/31/17) Physical Exam Vital Signs Date Time Temp Pulse Resp B/P (MAP) Pulse Ox O2 Delivery O2 Flow Rate FiO2 07/31/17 13:00 74 16 127/60 99 07/31/17 11:15 98 Room Air 07/31/17 10:46 36.7 77 18 130/92 98 Room Air Physical Exam GENERAL: Patient is awake, alert, somewhat anxious appearing and appears to be uncomfortable. EYES: The conjunctivae are clear. The pupils are round and reactive. EARS, NOSE, MOUTH AND THROAT: The nose is without any evidence of any deformity. Mucous membranes are moist tongue is midline NECK: The neck is nontender and supple. RESPIRATORY: Normal respiratory effort is noted there is no evidence of wheezing rhonchi or rales CARDIOVASCULAR: Regular rate and rhythm noted there no murmurs rubs or gallops normal S1 normal S2 GASTROINTESTINAL: The abdomen is soft. Some LLQ abdominal tenderness to palpation, no guarding or rigidity. Bowel sounds are present in all quadrants. MUSCULOSKELETAL/EXTREMITIES: There is no evidence of gross deformity full range of motion is noted in the hips and shoulders SKIN: There is no obvious evidence of any rash. There are no petechiae, pallor or cyanosis noted. NEUROLOGIC: Patient is awake alert and oriented x3 Medical Decision & Procedures ER Provider Diagnostic Interpretation: Radiology results as stated below per my review and radiologist interpretation: <14 WKS SINGLE CLINICAL HISTORY: bleeding pelvic pain TECHNIQUE: Ultrasound COMPARISON STUDY: 04/16/2017 FINDINGS: Uterus is midline with a greatest dimension of 9 cm. Endometrial thickness is 9 mm. 5 mm cystic focus within the central endometrium. Right ovary measures 2.9 cm. Left ovary measures 3.1 cm. Normal vascular flow to the ovaries appear to centimeter left ovarian cyst. IMPRESSION: 1. Moderately thickened endometrium at 9 mm with a 5 mm central cystic focus. 2. This Potentially represents a simple endometrial cyst, versus an extremely early intrauterine gestational sac. 3. Correlation with quantitative beta hCGs as well as serial follow-up ultrasounds is suggested to exclude any possibility of an early intrauterine .. 4. 2 cm left ovarian cyst. The above report was generated using voice recognition software. It may contain grammatical, syntax or spelling errors. Electronically signed by: Darin Correia M.D. 07/31/2017 12:40 PM Laboratory Results 07/31/17 11:26 Red Blood Count 3.89, Mean Corpuscular Volume 81.2, Mean Corpuscular Hemoglobin 25.7, Mean Corpuscular Hemoglobin Concent 31.6, Mean Platelet Volume 9.9, Neutrophils (%) (Auto) 70.7, Lymphocytes (%) (Auto) 23.1, Monocytes (%) (Auto) 5.3, Eosinophils (%) (Auto) 0.4, Basophils (%) (Auto) 0.4, Neutrophils # (Auto) 4.91, Lymphocytes # (Auto) 1.61, Monocytes # (Auto) 0.37, Eosinophils # (Auto) 0.03, Basophils # (Auto) 0.03 07/31/17 11:26 Test 07/31/17 11:26 07/31/17 13:07 White Blood Count 6.96 K/uL (4.8-10.8) Red Blood Count 3.89 M/uL (4.2-5.4) Hemoglobin 10.0 g/dL (12.0-16.0) Hematocrit 31.6 % (37-47) Mean Corpuscular Volume 81.2 fL (80-100) Mean Corpuscular Hemoglobin 25.7 pg (25-34) Mean Corpuscular Hemoglobin Concent 31.6 g/dl (32-36) Platelet Count 273 K/uL (130-400) Mean Platelet Volume 9.9 fL (7.4-10.4) Neutrophils (%) (Auto) 70.7 % Lymphocytes (%) (Auto) 23.1 % Monocytes (%) (Auto) 5.3 % Eosinophils (%) (Auto) 0.4 % Basophils (%) (Auto) 0.4 % Neutrophils # (Auto) 4.91 K/uL (1.4-6.5) Lymphocytes # (Auto) 1.61 K/uL (1.2-3.4) Monocytes # (Auto) 0.37 K/uL (0.11-0.59) Eosinophils # (Auto) 0.03 K/uL (0-0.5) Basophils # (Auto) 0.03 K/uL (0-0.2) RDW Standard Deviation 49.9 fL (36.4-46.3) RDW Coefficient of Variation 16.9 % (11.5-14.5) Immature Granulocyte % (Auto) 0.1 % Immature Granulocyte # (Auto) 0.01 K/uL (0.00-0.02) Prothrombin Time 10.1 SECONDS (9.0-12.0) Prothromb Time International Ratio 1.0 (0.9-1.1) Activated Partial Thromboplast Time 24.9 SECONDS (21.0-31.0) Partial Thromboplastin Ratio 1.0 Anion Gap 5.0 mmol/L (3-11) Est Creatinine Clear Calc Drug Dose 90.6 ml/min Estimated GFR () 121.3 Estimated GFR (Non- 104.7 BUN/Creatinine Ratio 17.1 (10-20) Calcium Level 8.6 mg/dl (8.5-10.1) Total Bilirubin 0.9 mg/dl (0.2-1) Aspartate Amino Transf (AST/SGOT) 14 U/L (15-37) Alanine Aminotransferase (ALT/SGPT) 22 U/L (12-78) Alkaline Phosphatase 73 U/L (45-117) Total Protein 7.5 gm/dl (6.4-8.2) Albumin 3.7 gm/dl (3.4-5.0) Globulin 3.8 gm/dl (2.5-4.0) Albumin/Globulin Ratio 1.0 (0.9-2) Human Chorionic Gonadotropin, Quant 243 mIU/mL Urine Color ORANGE Urine Appearance CLEAR (CLEAR) Urine pH 5.5 (4.5-7.5) Urine Specific [place] 1.011 (1.000-1.030) Urine Protein NEG (NEG) Urine Glucose (UA) NEG (NEG) Urine Ketones 1+ (NEG) Urine Occult Blood 3+ (NEG) Urine Nitrite NEG (NEG) Urine Bilirubin NEG (NEG) Urine Urobilinogen NEG (NEG) Urine Leukocyte Esterase SMALL (NEG) Urine WBC (Auto) 5-10 /hpf (0-5) Urine RBC (Auto) >30 /hpf (0-4) Urine Hyaline Casts (Auto) 1-5 /lpf (0-5) Urine Epithelial Cells (Auto) 20-30 /lpf (0-5) Urine Bacteria (Auto) NEG (NEG) Laboratory results per my review. Medications Administered Medications (Trade) Dose Ordered Sig/Alessandra Route Start Time Stop Time Status Last Admin Dose Admin Sodium Chloride 1,000 ml @ 999 mls/hr Q1H1M STAT IV 07/31/17 11:05 07/31/17 12:05 DC 07/31/17 11:31 999 MLS/HR Ondansetron HCl (Zofran Inj) 4 mg NOW STAT IV 07/31/17 11:08 07/31/17 11:10 DC 07/31/17 11:31 4 MG Ketorolac Tromethamine (Toradol Inj) 30 mg NOW STAT IV 07/31/17 13:10 07/31/17 13:11 DC 07/31/17 13:16 30 MG ED Course 1103: The patient was evaluated in room C8. A complete history and physical examination were performed. 1105: NSS 1000 ml @ 999 mls/hr IV. 1108: Zofran 4 mg IV. 1115: Fentanyl 50 mcg IV. 1310: Toradol 30 mg IV. 1316: I discussed the patients case with Tevin Stout [employer] PRO[employer] ENGINEER. She will follow up with the patient in the office. 1325: I reevaluated the patient. She is feeling well and resting comfortably. I discussed her results and discharge instructions and she verbalized complete understanding and agreement. Medical Decision Prior records/ancillary studies reviewed. Triage Nursing notes reviewed. The patient's history was concerning for abdominal pain. Differential diagnosis: Etiologies such as appendicitis, diverticulitis, PUD, biliary pathology, UTI, pancreatitis, obstruction, mesenteric ischemia, aortic pathology, infections, inflammatory bowel disease, renal colic, as well as others were entertained. The patient is a 46-year-old female who presented to the emergency department for an evaluation of vaginal bleeding. The patient had some cramping as well as passage of possible products. This was sent to the lab for identification. I discussed patient's laboratory and radiographic studies with her. She was found to have anemia but has baseline anemia as well. Her vital signs reviewed. The patient also had a left ovarian cyst. I discussed this case with the patient's primary [employer] physician. At this time a repeat beta quant will be helpful in 48 hours. The patient was encouraged to follow-up for this laboratory study in 2 days but she was also encouraged to rest and avoid any strenuous activity and return to the emergency department immediately if symptoms change worsen or the need arises. Medication Reconcilliation Current Medication List: was personally reviewed by me Blood Pressure Screening Patient's blood pressure: Normal blood pressure Blood pressure disposition: Did not require urgent referral Consults Time Called: 1314 Consulting Physician: Tevin Stout [employer] PRO[employer] ENGINEER Returned Call: [phone] I discussed the patients case with Tevin Stout FEED PROJECT ENGINEER. She will follow up with the patient in the office. Impression Primary Impression: Threatened miscarriage Additional Impressions: Vaginal bleeding Ovarian cyst Scribe Attestation The scribe's documentation has been prepared under my direction and personally reviewed by me in its entirety. I confirm that the note above accurately reflects all work, treatment, procedures, and medical decision making performed by me. Departure Information Referrals Justine Tello D.O. (PCP) Patient Instructions My [facility] Problem Qualifiers Additional Impressions: Ovarian cyst Laterality: left Qualified Codes: N83.202 - Unspecified ovarian cyst, left side
[2017-07-31] MEDS ORDERED: DOCU-94 PO (11:46)
[2017-07-31] MEDS ORDERED: PRENTAB26 PO (11:46)
[2017-07-31 11:54] LABS: BASO % 0.4 %; BASO ABS # 0.03 K/uL (0-0.2); EOS % 0.4 %; EOS ABS # 0.03 K/uL (0-0.5); HEMATOCRIT 31.6 % (37-47); IG# 0.01 K/uL (0.00-0.02); LYMPH % 23.1 %; LYMPH ABS # 1.61 K/uL (1.2-3.4); MEAN CELL VOLUME 81.2 fL (80-100); MEAN CORPUSCULAR HEMOGLOBIN 25.7 pg (25-34); MEAN CORPUSCULAR HGB CONC 31.6 g/dl (32-36); MEAN PLATELET VOLUME 9.9 fL (7.4-10.4); MONO % 5.3 %; MONO ABS # 0.37 K/uL (0.11-0.59); NEUT % 70.7 %; NEUT ABS # 4.91 K/uL (1.4-6.5); PLATELET COUNT 273 K/uL (130-400); RED CELL DISTRIBUTION WIDTH CV 16.9 % (11.5-14.5); RED CELL DISTRIBUTION WIDTH SD 49.9 fL (36.4-46.3); WHITE BLOOD COUNT 6.96 K/uL (4.8-10.8)
[2017-07-31 11:55] LABS: PTT PATIENT 24.9 SECONDS (21.0-31.0)
[2017-07-31 12:05] LABS: ALBUMIN 3.7 gm/dl (3.4-5.0); CALCIUM 8.6 mg/dl (8.5-10.1); CREATININE 0.67 mg/dl (0.60-1.20); POTASSIUM 3.7 mmol/L (3.5-5.1)
[2017-07-31 12:08] LABS: TOTAL PROTEIN 7.5 gm/dl (6.4-8.2)
--- NOTE | 2017-07-31 12:42 | DIAGNOSTIC IMAGING REPORT ---
<14 WKS SINGLE CLINICAL HISTORY: bleeding pelvic pain TECHNIQUE: Ultrasound COMPARISON STUDY: 04/16/2017 FINDINGS: Uterus is midline with a greatest dimension of 9 cm. Endometrial thickness is 9 mm. 5 mm cystic focus within the central endometrium. Right ovary measures 2.9 cm. Left ovary measures 3.1 cm. Normal vascular flow to the ovaries appear to centimeter left ovarian cyst. IMPRESSION: 1. Moderately thickened endometrium at 9 mm with a 5 mm central cystic focus. 2. This Potentially represents a simple endometrial cyst, versus an extremely early intrauterine gestational sac. 3. Correlation with quantitative beta hCGs as well as serial follow-up ultrasounds is suggested to exclude any possibility of an early intrauterine .. 4. 2 cm left ovarian cyst. The above report was generated using voice recognition software. It may contain grammatical, syntax or spelling errors. Electronically signed by: Darin Correia M.D. 07/31/2017 12:40 PM Dictated Date/Time: 07/31/2017 12:37 PM
[2017-07-31 13:00] VITALS: BP 127/60; PULSE 74; O2SAT 99
[2017-07-31] MEDS ORDERED: KETOROLAC TROMETHAMINE 30 MG/ML VIAL IV STA (13:10)
== END 2017-07-31 13:30 | disposition home or self-care (01) ==
LOC: C.EDB 10:34 → C.EDC 13:30
DX: O20.0 Threatened abortion (principal); N93.9 Abnormal uterine and vaginal bleeding, unspecified; N83.202 Unspecified ovarian cyst, left side; Z88.1 Allergy status to other antibiotic agents; Z88.8 Allergy status to other drugs, medicaments and biological substances; Z88.0 Allergy status to penicillin; Z88.5 Allergy status to narcotic agent

== ENCOUNTER → 2017-08-02 | Outpatient (CLI) | payer OTHER ==
[~2017-08-02] MED LIST changes: +DOCU-94 PO; -IBUP-1050 PO; -ONDA4TAB10 SL; -OXYC1TAB3 PO; +PRENTAB26 PO
== END | disposition home or self-care (01) ==
LOC: C.LAB 08:06
PROVIDERS: ATTEND Obstetrics & Gynecology
DX: Z34.90 Encounter for supervision of normal pregnancy, unspecified, unspecified trimester (principal); Z3A.00 Weeks of gestation of pregnancy not specified

== ENCOUNTER → 2017-08-09 | Outpatient (CLI) | payer OTHER | END | disposition home or self-care (01) | LOC: C.LAB 09:17 | PROVIDERS: ATTEND Obstetrics & Gynecology | DX: Z34.90 Encounter for supervision of normal pregnancy, unspecified, unspecified trimester (principal) ==

== ENCOUNTER → 2017-11-11 | Outpatient (CLI) | payer OTHER ==
[2017-11-11 09:38] LABS: BASO % 0.5 %; BASO ABS # 0.03 K/uL (0-0.2); EOS % 0.6 %; EOS ABS # 0.04 K/uL (0-0.5); HEMATOCRIT 34.2 % (37-47); HEMOGLOBIN 10.6 g/dL (12.0-16.0); IG# 0.02 K/uL (0.00-0.02); LYMPH % 23.9 %; LYMPH ABS # 1.52 K/uL (1.2-3.4); MEAN CELL VOLUME 82.8 fL (80-100); MEAN CORPUSCULAR HEMOGLOBIN 25.7 pg (25-34); MEAN PLATELET VOLUME 11.4 fL (7.4-10.4); MONO % 7.9 %; NEUT % 66.8 %; NEUT ABS # 4.25 K/uL (1.4-6.5); PLATELET COUNT 333 K/uL (130-400); RED CELL DISTRIBUTION WIDTH CV 16.8 % (11.5-14.5); RED CELL DISTRIBUTION WIDTH SD 50.6 fL (36.4-46.3); WHITE BLOOD COUNT 6.36 K/uL (4.8-10.8)
== END | disposition home or self-care (01) ==
LOC: C.LAB 06:50
PROVIDERS: ATTEND Student in an Organized Health Care Education/Training Program
DX: Z13.1 Encounter for screening for diabetes mellitus (principal); D50.9 Iron deficiency anemia, unspecified; Z13.220 Encounter for screening for lipoid disorders

== ENCOUNTER 2018-10-18 19:48 | Inpatient (IN) ==
[2018-10-18] MEDS ORDERED: FAMOTIDINE 20MG/5ML IV PUSH IV STA (20:21)
[2018-10-18] MEDS ORDERED: GI COCKTAIL ED USE PO STA (20:21)
[2018-10-18] MEDS ORDERED: METOCLOPRAMIDE HCL INJ 5 MG/ML 2 ML VIAL IV STA (20:21)
[2018-10-18] MEDS ORDERED: SODIUM CHLORIDE 0.9% 1000ML 1,000 ML IV ONE ×2 (20:21→23:23)
[2018-10-18 20:48] LABS: Basophils # (auto) 0.04 K/uL (0-0.2); Basophils % (auto) 0.5 %; Eosinophils # (auto) 0.07 K/uL (0-0.5); Eosinophils % (auto) 0.9 %; Hematocrit (blood only) 27.7 % (37-47); Hemoglobin 8.1 g/dL (12.0-16.0); Immature Granulocytes # (auto) 0.01 K/uL (0.00-0.02); Immature Granulocytes % (auto) 0.1 %; Lymphocytes # (auto) 2.45 K/uL (1.2-3.4); Lymphocytes % (auto) 30.5 %; Mean Corpuscular Hgb Conc 29.2 g/dL (32-36); Mean Corpuscular Volume 73.9 fL (80-100); Mean Platelet Volume 9.9 fL (7.4-10.4); Monocytes # (auto) 0.49 K/uL (0.11-0.59); Monocytes % (auto) 6.1 %; Neutrophils # (auto) 4.98 K/uL (1.4-6.5); Neutrophils % (auto) 61.9 %; Platelet Count 230 K/uL (130-400); RDW Coefficient of Variation 17.3 % (11.5-14.5); RDW Standard Deviation 46.7 fL (36.4-46.3); Red Blood Count 3.75 M/uL (4.2-5.4); White Blood Count 8.04 K/uL (4.8-10.8)
--- NOTE | 2018-10-18 20:59 | XRay Report ---
XR chest 1V portable CLINICAL HISTORY: Chest Pain dyspnea COMPARISON STUDY: 09/18/2016 FINDINGS: The bones soft tissues and hemidiaphragms are normal. The cardiomediastinal silhouette is n ormal. The lungs are clear. The pulmonary vasculature is normal. IMPRESSION: Negative chest. The above report was generated using voice recognition software. It may contain grammatical, syntax or spelling errors. Electronically signed by: Darin Correia M.D. 10/18/2018 8:57 PM
[2018-10-18 21:05] LABS: Alanine Aminotransferase 22 U/L (12-78); Albumin Level 3.7 gm/dl (3.4-5.0); Aspartate Aminotransferase 18 U/L (15-37); BUN Creatinine Ratio 14.9 (10-20); Bilirubin Direct 0.2 mg/dl (0-0.2); Blood Urea Nitrogen 10 mg/dl (7-18); Calcium 8.8 mg/dl (8.5-10.1); Carbon Dioxide 25 mmol/L (21-32); Chloride 107 mmol/L (98-107); Creatinine Clr Calc Pharmacy 93.8 ml/min; Est GFR (African American) 120.5; Est GFR (Non-African American) 103.9; Glucose 92 mg/dl (70-99); Magnesium 2.1 mg/dl (1.8-2.4); Potassium 3.6 mmol/L (3.5-5.1); Sodium 140 mmol/L (136-145)
[2018-10-18 21:10] LABS: Alkaline Phosphatase 67 U/L (45-117); Bilirubin,Total 0.9 mg/dl (0.2-1); Globulin 3.9 gm/dl (2.5-4.0); Total Protein 7.6 gm/dl (6.4-8.2); Troponin I < 0.015 ng/ml (0-0.045)
[2018-10-18 21:16] LABS: Hypochromasia Present; Microcytosis Present
--- NOTE | 2018-10-18 21:49 | Emergency Department Note ---
Entered by Estefany Mckinney acting as a scribe for Saqib Thakur MD History of Present Illness General Chief complaint: Abdominal Pain Stated complaint: BURNING PAIN AROUND COTE Time Seen by Provider: 10/18/18 19:55 Source: patient Mode of arrival: ambulatory Limitations: no limitations History of Present Illness Onset (ago): week(s) 2 Location: abdomen (upper region ) Pain Consistency: + other (worsening ) Maximum Pain Intensity: 8 Quality: + burning and + stabbing Exacerbated By: + none Associated symptoms: + cough, + nausea/vomiting (nausea) and + shortness of breath The patient is a 47 year old female who presents to the ED with complaints of worsening abdominal pain that began a few weeks ago. The patient reports that she feels burning and stabbing pain in the upper region of her abdomen. The patient states that her stomach feels constantly bloated. She reports that she has nausea, shortness of breath, and a slight cough. The patient states that she has a history of H. pylori and that she was prescribed Metronidazole which she stopped taking about a month ago. She reports that she stopped taking the medication because she does not like to overmedicate. She states that she has all of the same symptoms now as she did when she got diagnosed with H. pylori n ot to long ago. She reports that she has a family history of stomach cancer. She notes that she has an endoscopy scheduled 8 days from now. She states that her last endoscopy was 2 years ago. Home Medications Home Medications Medication Instructions Recorded Confirmed Type acetaminophen [Tylenol] 325 mg PO BID PRN 02/23/18 10/18/18 History PNV cmb#95-ferrous fumarate-FA 1 tab PO DAILY 10/18/18 10/18/18 History [] Allergies Allergy/AdvReac Type Severity Reaction Status Date / Time amoxicillin Allergy Severe THROAT Verified 10/18/18 20:18 SWELLING clavulanic acid Allergy Severe THROAT Verified 10/18/18 20:18 SWELLING Penicillins Allergy Severe THROAT Verified 10/18/18 20:18 SWELLING morphine AdvReac Intermediate NAUSEA Verified 10/18/18 20:18 codeine AdvReac Mild VOMITING Verified 10/18/18 20:18 Past Med/Surg History Medical History GI symptoms H. pylori infection Family History Other Stomach cancer Social History Preferred Language: Telugu Feels Safe at Home: Yes Smoking Status: Never smoker Review of Systems See HPI for pertinent positives & negatives. and A total of 10 systems reviewed and were otherwise negative Physical Exam Vital Signs Vital Signs - 24 hr 10/18/18 19:50 10/18/18 20:30 10/18/18 21:25 Temperature 36.8 C Temperature Source Oral Sepsis Recent Fever Within 48 Hours No Sepsis Action Taken by Nursing No Action Required Pulse Rate 94 H 75 Pulse Rate [Right Finger] 75 Respiratory Rate 20 17 Respiratory Effort / Characteristics Non-Labored Spontaneous Non-Labored Spontaneous Respiratory Depth Normal Normal Respiratory Pattern Regular Blood Pressure 132/74 Blood Pressure [Right Arm] 119/72 Blood Pressure Mean 93 Blood Pressure Mean [Right Arm] 87 Blood Pressure Position Sitting Blood Pressure Position [Right Arm] Lying Pulse Oximetry 100 98 97 Oxygen Delivery Method Room Air Room Air Room Air 10/18/18 23:11 10/18/18 23:17 Temperature Temperature Source Sepsis Recent Fever Within 48 Hours Sepsis Action Taken by Nursing Pulse Rate Pulse Rate [Right Finger] 75 79 Respiratory Rate 20 18 Respiratory Effort / Characteristics Non-Labored Spontaneous Respiratory Depth Normal Respiratory Pattern Regular Blood Pressure Blood Pressure [Right Arm] 120/72 91/58 L Blood Pressure Mean Blood Pressure Mean [Right Arm] 88 69 Blood Pressure Position Blood Pressure Position [Right Arm] Lying Pulse Oximetry 99 98 Oxygen Delivery Method Room Air Room Air GENERAL: Awake, alert, well-appearing, in no distress HENT: Normocephalic, atraumatic. Oropharynx with dry mucous membranes and otherwise unremarkable. EYES: Normal conjunctiva. Sclera non-icteric. NECK: Supple. No nuchal rigidity. FROM. No JVD. RESPIRATORY: CTAB CARDIAC: Regular rate, normal rhythm. Extremities warm and well perfused. Pulses equal. ABDOMEN: Soft, non-distended. Epigastric tenderness. No rebound or guarding. No masses. RECTAL: Brown stool, scant guaiac positive. No blood or melena. MUSCULOSKELETAL: Chest examination reveals no tenderness. The back is symmetrical on inspection without obvious abnormality. There is no CVA tenderness to palpation. No joint edema. LOWER EXTREMITIES: Calves are equal size bilaterally and non-tender. No edema. No discoloration. NEURO: Normal sensorium. No sensory or motor deficits noted. SKIN: No rash or jaundice noted. Course 2001: Past medical records reviewed. The patient was evaluated in room B9. A complete history and physical exam was performed. 2099: I reevaluated the patient and she is resting comfortably. 2129: I reevaluated the patient and she is doing well. I discussed the test results 2326: I discussed the patients case with Olive Cortez. He agreed to admit the patient for further management. Administered Medications Hydromorphone HCl (Dilaudid) 0.5 mg IV Q3H PRN PRN Reason: Pain Stop: 11/02/18 00:18 Last Admin: 10/19/18 00:32 Dose: 0.5 mg Documented by: [id number] Ondansetron HCl (Zofran) 4 mg IV Q6H PRN PRN Reason: Nausea Stop: 11/18/18 00:18 Last Admin: 10/19/18 00:32 Dose: 4 mg Documented by: [id number] Discontinued Medications Al Hydrox/Mg Hydrox/Simethicone () 1 dose PO NOW STA Stop: 10/18/18 20:22 Last Admin: 10/18/18 20:47 Dose: 1 dose Documented by: [id number] Famotidine (Pepcid 20mg Iv Push) 20 mg IV ONE STA Stop: 10/18/18 20:22 Last Admin: 10/18/18 20:47 Dose: 20 mg Documented by: [id number] Sodium Chloride (Nss 1000ml) 1,000 mls @ 999 mls/hr IV .Q1H1M ONE Stop: 10/18/18 21:21 Last Infusion: 10/18/18 21:51 Dose: 0 mls/hr Documented by: [id number] Admin: 10/18/18 20:47 Dose: 999 mls/hr Documented by: [id number] Sodium Chloride (Nss 1000ml) 1,000 mls @ 999 mls/hr IV .Q1H1M ONE Stop: 10/19/18 00:23 Last Infusion: 10/19/18 00:39 Dose: 0 mls/hr Documented by: [id number] Admin: 10/18/18 23:35 Dose: 999 mls/hr Documented by: [id number] Pantoprazole Sodium 80 mg/ (Dextrose) 120 mls @ 480 mls/hr IV NOW STA Stop: 10/19/18 00:36 Last Admin: 10/19/18 00:36 Dose: 480 mls/hr Documented by: [id number] Metoclopramide HCl (Reglan) 10 mg IV NOW STA Stop: 10/18/18 20:22 Last Admin: 10/18/18 20:47 Dose: 10 mg Documented by: [id number] Medical Decision Making Differential Diagnosis Differential diagnosis: Etiologies such as biliary colic, cholecystitis, hepatitis, perihepatitis, pancreatitis, cardiac disease, pancreatitis, gastritis, peptic ulcer disease, appendicitis, ovarian cyst, ovarian torsion, ectopic , pelvic inflammatory disease, cystitis, diverticulitis, mesenteric ischemia, inflammatory bowel disease, ileus, bowel obstruction, aortic pathology, shingles, as well as others were considered. Medical Records Attestation: I reviewed the patient's medical records. Home Medications Current Medication List: was personally reviewed by me Laboratory Data Result diagrams: 10/18/18 20:32 10/18/18 20:32 Lab Results 10/18/18 10/18/18 10/18/18 Range/Units 20:32 20:32 23:30 WBC 8.04 (4.8-10.8) K/uL RBC 3.75 L (4.2-5.4) M/uL Hgb 8.1 L (12.0-16.0) g/dL Hct 27.7 L (37-47) % MCV 73.9 L (80-100) fL MCH 21.6 L (25-34) pg MCHC 29.2 L (32-36) g/dL RDW Std Deviation 46.7 H (36.4-46.3) fL RDW Coeff of Jane 17.3 H (11.5-14.5) % Plt Count 230 (130-400) K/uL MPV 9.9 (7.4-10.4) fL Immature Gran % (Auto) 0.1 % Neut % (Auto) 61.9 % Lymph % (Auto) 30.5 % [place] % (Auto) 6.1 % Eos % (Auto) 0.9 % Baso % (Auto) 0.5 % Immature Gran # (Auto) 0.01 (0.00-0.02) K/uL Neut # (Auto) 4.98 (1.4-6.5) K/uL Lymph # (Auto) 2.45 (1.2-3.4) K/uL [place] # (Auto) 0.49 (0.11-0.59) K/uL Eos # (Auto) 0.07 (0-0.5) K/uL Baso # (Auto) 0.04 (0-0.2) K/uL Hypochromasia Present Microcytosis Present Sodium 140 (136-145) mmol/L Potassium 3.6 (3.5-5.1) mmol/L Chloride 107 (98-107) mmol/L Carbon Dioxide 25 (21-32) mmol/L Anion Gap 8.0 (3-11) BUN 10 (7-18) mg/dl Creatinine 0.67 (0.6-1.2) mg/dl Est Cr Clr Drug Dosing 93.8 ml/min Est GFR ( Amer) 120.5 Est GFR (Non-Af Amer) 103.9 BUN/Creatinine Ratio 14.9 (10-20) Glucose 92 (70-99) mg/dl Calcium 8.8 (8.5-10.1) mg/dl Magnesium 2.1 (1.8-2.4) mg/dl Total Bilirubin 0.9 (0.2-1) mg/dl Direct Bilirubin 0.2 (0-0.2) mg/dl AST 18 (15-37) U/L ALT 22 (12-78) U/L Alkaline Phosphatase 67 (45-117) U/L Troponin I < 0.015 (0-0.045) ng/ml Total Protein 7.6 (6.4-8.2) gm/dl Albumin 3.7 (3.4-5.0) gm/dl Globulin 3.9 (2.5-4.0) gm/dl Albumin/Globulin Ratio 1.0 (0.9-2) Lipase 174 (73-393) U/L Blood Type O Positive Antibody Screen NEGATIVE Imaging Data Radiologist's Impression: Radiology results as stated below per my review and the radiologist's interpretation: XR chest 1V portable CLINICAL HISTORY: Chest Pain dyspnea COMPARISON STUDY: 09/18/2016 FINDINGS: The bones soft tissues and hemidiaphragms are normal. The cardiomediastinal silhouette is normal. The lungs are clear. The pulmonary vasculature is normal. IMPRESSION: Negative chest. The above report was generated using voice recognition software. It may contain grammatical, syntax or spelling errors. Electronically signed by: Darin Correia M.D. 10/18/2018 8:57 PM ECG Data Attestation: I personally reviewed and interpreted this ECG as follows: Indication: abdominal pain Rate (beats per minute): 74 Rhythm: normal sinus Findings: + other (normal axis ); no ST depression, no ST elevation and no acute ischemic change Blood Pressure Blood Pressure Findings: Normal blood pressure Blood Pressure Disposition: did not require urgent referral MDM Narrative The patient is a 47-year-old woman with a past medical history of H. pylori who presents emergency department with worsening epigastric burning as well as generalized weakness and dyspnea on exertion over the past couple of weeks per hpi. Patient reports she has a scheduled endoscopy a week from tomorrow with Dr. Arechiga but felt her symptoms were much worse and so presents to the ED. On arrival patient is uncomfortable but no acute distress, afebrile stable vital signs. On exam patient has mild epigastric tenderness without guarding or rebound. EKG without evidence of acute ischemia. CXR negative for free air. H/H8 0.1/27.7 without recent values for comparison however decreased from a hemoglobin of 10 in January 2018. WBC within normal limits and platelets within normal limits. Chemistry without acidosis and BUN within normal limits. Troponin negative. Rectal exam demonstrates brown stool that is scant guaiac positive. Patient does report having had dark tarry stools intermittently over the past week however in the setting of taking iron supplementation. However given the patient's report of symptoms of weakness and dyspnea reasonable to admit the patient for further trending of her H&H and likely GI consultation. Case was discussed with Dr. Suárez, [facility] hospitalist, who evaluate the patient for admission. Impression & Plan GI bleed, Anemia, Epigastric abdominal pain Discharge Plan Visit Data Chief Complaint: Abdominal Pain Stated Complaint: BURNING PAIN AROUND COTE ED Provider: Saqib Thakur Discharge Problem: GI bleed, Anemia, Epigastric abdominal pain Patient Disposition: Being Evaluated by Hospitalist Forms Stand Alone Forms: Call Back Authorization, [email or web address] Prescriptions Prescriptions: No Action acetaminophen [Tylenol] 325 mg Tablet 325 mg PO BID PRN (Reason: Unknown) RF: 0 PNV cmb#95-ferrous fumarate-FA [] 28 mg iron- 800 mcg Tablet 1 tab PO DAILY RF: 0 Referrals Referrals: Justine Tello DO [Primary Care Provider] - Discharge Problem: GI bleed Qualifiers: GI bleed type/associated pathology: unspecified gastrointestinal hemorrhage type Qualified Code(s): K92.2 - Gastrointestinal hemorrhage, unspecified Anemia Qualifiers: Anemia type: unspecified type Qualified Code(s): D64.9 - Anemia, unspecified The scribe's documentation has been prepared under my direction and personally reviewed by me in its entirety. I confirm that the note above accurately reflects all work, treatment, procedures, and medical decision making performed by me.
[2018-10-19] MEDS ORDERED: PANTOprazole 80 MG in DEXTROSE 5% 100 ML IV STA (00:22)
[2018-10-19] MEDS: HYDROmorphone INJ 0.5 MG/0.5 ML SYR IV PRN ×2 (00:32→05:38)
[2018-10-19] MEDS: ONDANSETRON INJ 2 MG/ML 2 ML VIAL IV PRN ×3 (00:32→15:46)
[2018-10-19] MEDS: PANTOprazole 40 MG in DEXTROSE 5% 100 ML IV SCH ×5 (00:52→21:45)
[2018-10-19] MEDS ORDERED: NITROGLYCERIN SL 0.4 MG/TAB TAB SL PRN (01:31)
[2018-10-19] MEDS ORDERED: ACETAMINOPHEN 325 MG TAB PO PRN (01:31)
[2018-10-19] MEDS: SODIUM CHLORIDE 0.9% 1000ML 1,000 ML IV SCH ×2 (02:12→16:42)
--- NOTE | 2018-10-19 02:47 | History and Physical Report ---
DATE OF ADMISSION: 10/19/2018 CHIEF COMPLAINT: Abdominal pain. HISTORY OF PRESENT ILLNESS: This is a 47-year-old female with past medical history significant for high triglycerides, allergic rhinitis, iron deficiency anemia, who presents with epigastric abdominal pain. The patient says she had similar kind of episode 2 years ago when EGD was done and she was found to have H. pylori and she was treated with p.o. Flagyl and clarithromycin. At that time, she was also found to have anemia, iron deficiency, and also she had some hemorrhagic cyst at that time and heavy menses and she received IV iron sucrose at that time and her hemoglobin improved. She says right now her menses are normal, but since last few weeks she is again having same epigastric abdominal pain. She takes vitamins. Since last couple of weeks on and off she has some black stools. Denies any bright red blood in the rectum. No nausea, no vomiting, but she has shortness of breath, not feeling well. Appetite is down, but she gained some weight. Denies any recent hematuria. Normal bladder movements. No burning micturition. No headache, no blurred vision, no earache, no runny nose, no sore throat, no difficulty swallowing, no chest pain. Has some cough. No fever, no chills. Currently resting comfortable and hemodynamically stable. ALLERGIES: AMOXICILLIN CLAVULANATE, CODEINE, PENICILLINS, MORPHINE AND RELATED. PAST MEDICAL HISTORY: As mentioned above. PAST SURGICAL HISTORY: Colonoscopy, EGDs, tonsillectomy, exploration of bilateral cyst. MEDICATIONS: vitamins. FAMILY HISTORY: Significant for father had colon cancer. Mother has hypertension. Uncle has stroke. SOCIAL HISTORY: Marital status, . No smoking history. Alcohol rare. No drug use. REVIEW OF SYMPTOMS: As per HPI. Rest of the review of systems negative. PHYSICAL EXAMINATION: GENERAL: The patient is alert and oriented, not in acute distress. VITAL SIGNS: Temperature 36.8, pulse 79, respiratory rate 18, blood pressure 91/58, oxygen 98% room air. HEENT: No pallor, no icterus. Pupils equal, round, and reactive to light. NECK: No JVD, no neck masses, no carotid bruits. CARDIOVASCULAR: S1, S2 heard, regular rate and rhythm, no murmur, no gallop. RESPIRATORY SYSTEM: Normal AP diameter. No accessory muscle use. No wheezing, no crackles. ABDOMEN: Soft, bowel sounds present. Epigastric tenderness present. Mild guarding, no rigidity, no distention. CENTRAL NERVOUS SYSTEM: Cranial nerves II-XII grossly intact. Nonfocal. EXTREMITIES: No edema, no erythema. LABORATORY DATA: WBC 8, hemoglobin 8.1, hematocrit 27.7, platelets 230. Sodium 140, potassium 3.6, chloride 107, bicarbonate 25, BUN 10, creatinine 0.6, serum glucose 92, calcium 8.8, magnesium 2.1, total bilirubin 0.9, direct bilirubin 0.2, AST 18, ALT 22, alkaline phosphatase 67. Troponin I less than 0.015. Lipase 174. IMAGING DATA: Chest x-ray, negative chest. EKG: Normal sinus rhythm, rate of 74, no acute ST changes seen. ASSESSMENT AND PLAN: This is a 47-year-old female who presents with epigastric abdominal pain, found to have anemia and Hemoccult positive. 1. Epigastric abdominal pain and tenderness. History of H. pylori infection, history of anemia in the past. The patient has a scheduled EGD on 10/26/2018. We will admit the patient, keep her n.p.o., IV fluids, pain control, IV PPI drip. Consult GI in a.m. 2. Anemia, probably acute on chronic, possible blood loss. Baseline hemoglobin is about 10, presently with a hemoglobin of 8.1. Hemoccult tested mildly positive in the ER. The patient has some black stools on and off since a couple of weeks. The patient is on vitamin tablets. History of H. pylori infection and history of anemia in the past and required IV iron. Got the blood consent. We will follow H and H q. 6 hours. If hemoglobin drops less than 8, we will give prbc transfusion. Starting on IV Protonix drip, n.p.o. for possible EGD in the a.m. . The patient says there is a history of stomach cancer in the family. 3. Deep venous thrombosis prophylaxis, sequential compression devices. DISPOSITION: Admit to med/surg tele. Level 1 full code. Expect to discharge home and follow with her family doctor. MTDD
[2018-10-19 05:51] LABS: Basophils # (auto) 0.02 K/uL (0-0.2); Basophils % (auto) 0.3 %; Eosinophils # (auto) 0.04 K/uL (0-0.5); Eosinophils % (auto) 0.7 %; Hematocrit (blood only) 25.3 % (37-47); Hemoglobin 7.4 g/dL (12.0-16.0); Immature Granulocytes # (auto) 0.01 K/uL (0.00-0.02); Immature Granulocytes % (auto) 0.2 %; Lymphocytes % (auto) 30.3 %; Mean Corpuscular Hgb Conc 29.2 g/dL (32-36); Mean Corpuscular Volume 74.6 fL (80-100); Mean Platelet Volume 10.1 fL (7.4-10.4); Monocytes # (auto) 0.43 K/uL (0.11-0.59); Monocytes % (auto) 7.2 %; Neutrophils # (auto) 3.64 K/uL (1.4-6.5); Neutrophils % (auto) 61.3 %; Platelet Count 201 K/uL (130-400); RDW Coefficient of Variation 17.5 % (11.5-14.5); RDW Standard Deviation 47.7 fL (36.4-46.3); Red Blood Count 3.39 M/uL (4.2-5.4); White Blood Count 5.94 K/uL (4.8-10.8)
[2018-10-19 05:52] LABS: Hematocrit (blood only) 25.2 % (37-47); Hemoglobin 7.3 g/dL (12.0-16.0)
[2018-10-19 06:14] LABS: BUN Creatinine Ratio 12.6 (10-20); Calcium 7.6 mg/dl (8.5-10.1); Creatinine Clr Calc Pharmacy 114.3 ml/min; Est GFR (African American) 128.6; Est GFR (Non-African American) 110.9; Magnesium 2.3 mg/dl (1.8-2.4); Potassium 3.9 mmol/L (3.5-5.1)
[2018-10-19 06:54] LABS: Ovalocytes 1+
[2018-10-19] MEDS ORDERED: SODIUM CHLORIDE 0.9% 250 ML IV PRN (06:58)
[2018-10-19] MEDS ORDERED: ACETAMINOPHEN 325 MG TAB PO ONE (07:59)
[2018-10-19] MEDS ORDERED: PROMETHAZINE HCL 12.5 MG in SODIUM CHLORIDE 0.9% 50 ML IV STA (08:41)
--- NOTE | 2018-10-19 09:52 | Gastrointestinal Consultation ---
Date of Consultation October 19, 2018 Assessment & Plan (1) Anemia: EGD this morning by Dr. Rajput Appreciate primary hospitalists management of blood/fluid resuscitation. Further recommendations to follow endoscopy. May need to repeat colonoscopy if no cause of anemia on EGD. (2) Epigastric abdominal pain: Supervising Physician Co-Signing Physician Notes I saw and evaluated the patient. She presents with a question of melena and a drop in her hemoglobin and hematocrit with epigastric discomfort. Physical examination No obvious distress Abdomen with mild epigastric tenderness Impression: Patient with a drop in hemoglobin and hematocrit, abdominal discomfort and history of peptic ulcer disease. We will plan for upper endoscopy today for further evaluation. Recommendations N.p.o. Protonix drip Upper endoscopy today History of Present Illness Reason for Consultation: Ms. Yamileth Garcia is a 47 yr old female pt of Dr. Harish Tello with a hx of anemia secondary to menorrhagia and H Pylori gastritis(2016). 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 Yesterday, she experienced severe epigastric pain and presented to the ED after working her shift. She denies chronic pain though had been having mild to moderate epigastric pain for approx 2 weeks. Her stools are black but she is on vitamins that contain iron. She has not had any obvious gross GI bleeding. No CP or SOB. On arrival, Hb was 10 ->7.4 today. She is receiving a unit of RBCs. BUN is normal at 7. She is awake, alert, oriented and currently has mild to moderate epigastric pain. Prior endoscopy: EGD 08/10/15 Dr. Arechiga - Normal esophagus. - Normal stomach.Biopsied. - Normal examined duodenum. Biopsied. Colonoscopy 08/10/15 Dr. Arechiga: - The entire examined colon is normal. - No specimens collected. Path: A. Entire stomach, biopsy: Active chronic gastritis. H. pylori organisms present (confirmed by immunostain). B. Entire examined duodenum, biopsy: Duodenal mucosa with no significant histopathologic changes. Attending Physician: Wm Turner MD Allergies Allergy/AdvReac Type Severity Reaction Status Date / Time amoxicillin Allergy Severe THROAT Verified 10/18/18 20:18 SWELLING clavulanic acid Allergy Severe THROAT Verified 10/18/18 20:18 SWELLING Penicillins Allergy Severe THROAT Verified 10/18/18 20:18 SWELLING morphine AdvReac Intermediate NAUSEA Verified 10/18/18 20:18 codeine AdvReac Mild VOMITING Verified 10/18/18 20:18 Home Medications Home Medications Medication Instructions Recorded Confirmed Type acetaminophen [Tylenol] 325 mg PO BID PRN 02/23/18 10/18/18 History PNV cmb#95-ferrous fumarate-FA 1 tab PO DAILY 10/18/18 10/18/18 History [] Patient History Medical History GI symptoms H. pylori infection Surgical History H/O colonoscopy History of esophagogastroduodenoscopy (EGD) S/P tonsillectomy Family History Other Stomach cancer Social History Preferred Language: Maori Communication Ability: Effective Investment Recovery Technician Required: No Beliefs That Will Affect Care: None Current Living Situation: Alone Other Information That Helps Us Care for You: No Feels Safe at Home: Yes Safety Concerns: Feels Safe At This Time Smoking Status: Never smoker Hx Alcohol Use: Yes Alcohol type: beer and wine Hx Substance Use: No Review of Systems Review of Systems: ROS: Gen: Denies weakness, fevers, weight loss Eyes: No eye redness, or pain, no recent vision changes Resp: No SOB, no cough Cardio: No palpitations/irregular beats, no chest pain GI: + epigastric pain, no nausea/vomiting, diarrhea or gross GI bleeding : Denies pain on urination Skin: No jaundice, itching or new rashes Physical Exam Constitutional: WD/WN, vitals as above Eyes: PERRL, conjunctivae normal, anicteric sclerae ENMT: external ear and nose normal, oropharynx normal Neck: trachea midline, no thyromegaly Respiratory: normal respiratory effort, lungs clear to auscultation Cardiovascular: RRR, no murmur, no edema Gastrointestinal (Abdomen): Inspection/Auscultation: abdomen normal to inspe ction and + hypoactive bowel sounds; abdomen not distended Percussion/Palpation: + abdomen tender (epigastric) and abdomen soft Rectal Exam: + heme positive stool Musculoskeletal: no cyanosis or clubbing, extremities motor strength 5/5 Skin: no rashes, warm and dry Neurologic: PERRL, EOMI, accommodation nl, no face palsy, no dysarthria Psychiatric: A+Ox3, euthymic affect Lymphatic: no cervical or axillary lymphadenopathy Results & Data Vital Signs (Past 12 Hours) Vital Signs Temp Pulse Pulse Resp BP BP BP 10/19/18 08:45 36.9 C 65 16 119/73 10/19/18 08:20 37.1 C 71 16 110/73 10/19/18 08:09 37.0 C 70 16 116/73 10/19/18 07:46 36.9 C 73 16 125/64 10/19/18 07:18 36.9 C 74 16 114/71 10/19/18 04:00 36.6 C 73 20 101/63 10/19/18 01:45 36.6 C 73 16 127/81 10/19/18 00:52 71 18 107/66 10/18/18 23:17 79 18 91/58 L 10/18/18 23:11 75 20 120/72 Pulse Ox 10/19/18 08:45 97 10/19/18 08:20 98 10/19/18 08:09 97 10/19/18 07:46 96 10/19/18 07:18 98 10/19/18 04:00 99 10/19/18 01:45 98 10/19/18 00:52 95 10/18/18 23:17 98 10/18/18 23:11 99 (1) Anemia Anemia type: unspecified type Qualified Code(s): D64.9 - Anemia, unspecified
[2018-10-19] MEDS ORDERED: FUROSEMIDE 20 MG in SYRINGE 0 ML IV ONE (10:00)
--- NOTE | 2018-10-19 11:57 | Anesthesiology Consultation ---
Date of Service October 19, 2018 Assessment & Plan Chart Review Chart Review: Acceptable Risk for Surgery and Patient NOT seen in Pre Admission Testing Consults Requested none Patient receiving 2nd unit if pRBC History Surgery Operation Date: 10/19/18 09:30 Proposed Procedures p Esophagogastroduodenoscopy Dr Regulo Rajput Height/Weight Height: 5 ft 1 in Weight: 73 kg Allergies Allergy/AdvReac Type Severity Reaction Status Date / Time amoxicillin Allergy Severe THROAT Verified 10/18/18 20:18 SWELLING clavulanic acid Allergy Severe THROAT Verified 10/18/18 20:18 SWELLING Penicillins Allergy Severe THROAT Verified 10/18/18 20:18 SWELLING morphine AdvReac Intermediate NAUSEA Verified 10/18/18 20:18 codeine AdvReac Mild VOMITING Verified 10/18/18 20:18 Medications Home Medications Medication Instructions Recorded Confirmed Last Taken acetaminophen [Tylenol] 325 mg PO BID PRN 02/23/18 10/18/18 Unknown PNV cmb#95-ferrous fumarate-FA 1 tab PO DAILY 10/18/18 10/18/18 Unknown [] Active Medications Generic Name Dose Route Start Last Admin Trade Name Freq PRN Reason Stop Dose Admin Hydromorphone HCl 0.5 mg 10/19/18 00:19 10/19/18 05:38 Dilaudid IV 11/02/18 00:18 0.5 mg Q3H PRN Administration Pain Pantoprazole Sodium 40 mg/ 100 mls @ 20 mls/hr 10/19/18 00:30 10/19/18 10:56 Dextrose IV 10/21/18 05:29 20 mls/hr Q5H PRISCILA Administration Sodium Chloride 1,000 mls @ 125 mls/hr 10/19/18 01:31 10/19/18 07:52 Nss 1000ml IV 11/18/18 01:30 0 mls/hr .Q8H PRISCILA Infusion Ondansetron HCl 4 mg 10/19/18 00:19 10/19/18 05:38 Zofran IV 11/18/18 00:18 4 mg Q6H PRN Administration Nausea Past Medical History Medical History GI symptoms H. pylori infection Exercise / Class Metabolic Activity II 4-5 Yardwork/Stairs/Walk up hill Past Family History Family History Other Stomach cancer Past Surgical History Surgical History H/O colonoscopy History of esophagogastroduodenoscopy (EGD) S/P tonsillectomy Past Anesthesia History No Hx of Anesthesia Complications and No Family Hx of Anesthesia Complications History of PONV No Hx of PONV and No Hx of Motion Sickness Social History Smoking Status: Never smoker Hx Alcohol Use: Yes Alcohol type: beer and wine alcohol intake frequency: holidays/special occasions only Hx Substance Use: No Physical Exam Vital Signs Last Vital Signs Temp 37.3 C 10/19/18 11:25 Pulse 60 10/19/18 11:25 Resp 18 10/19/18 11:25 BP 116/73 10/19/18 11:25 Pulse Ox 100 10/19/18 11:25 Testing Laboratory Results 10/19/18 05:15 10/19/18 05:15 Blood Type O Positive 10/18/18 23:30 Antibody Screen NEGATIVE 10/18/18 23:30 Electrocardiogram Date: 10/18/18 Findings: + NSR @ (74) Normal sinus rhythm Normal ECG When compared with ECG of 18-SEP-2016 21:30, No significant change was found
[2018-10-19] MEDS ORDERED: LIDOCAINE HCL 2% 2 ML VIAL/AMP(20MG/ML) INFIL ONE (11:58)
[2018-10-19] MEDS ORDERED: PROPOFOL IV EMULSION 10 MG/ML 20 ML VIAL IV ONE (11:58)
--- NOTE | 2018-10-19 12:28 | GI REPORT ---
Patient Name: Yamileth Garcia Procedure Date: 10/19/2018 12:10 PM Date of : 1970 Admit Type: Inpatient Age: 47 Gender: Female Attending MD: Garima Rajput DO Procedure: Upper GI endoscopy Providers: Garima Rajput DO Referring MD: Lawrence Hastings MD Indications: Epigastric abdominal pain, Melena Medicines: Monitored Anesthesia Care Complications: No immediate complications. Estimated blood loss: Minimal. Estimated Blood Loss: Estimated blood loss was minimal. Procedure: Pre-Anesthesia Assessment: - Prior to the procedure, a History and Physical was performed, and patient medications, allergies and sensitivities were reviewed. The patient's tolerance of previous anesthesia was reviewed. - The risks and benefits of the procedure and the sedation options and risks were discussed with the patient. All questions were answered and informed consent was obtained. - Patient identification and proposed procedure were verified prior to the procedure by the physician, the nurse and the intelligence operations. The procedure was verified in the procedure room. - Pre-procedure physical examination revealed no contraindications to sedation. - ASA Grade Assessment: II - A patient with mild systemic disease. - After reviewing the risks and benefits, the patient was deemed in satisfactory condition to undergo the procedure. - The anesthesia plan was to use monitored anesthesia care (MAC). - Immediately prior to administration of medications, the patient was re-assessed for adequacy to receive sedatives. - The heart rate, respiratory rate, oxygen saturations, blood pressure, adequacy of pulmonary ventilation, and response to care were monitored throughout the procedure. - The physical status of the patient was re-assessed after the procedure. After obtaining informed consent, the endoscope was passed under direct vision. Throughout the procedure, the patient's blood pressure, pulse, and oxygen saturations were monitored continuously. The Endoscope was introduced through the mouth, and advanced to the third part of duodenum. The upper GI endoscopy was accomplished without difficulty. The patient tolerated the procedure well. Findings: The examined esophagus was normal. The Z-line was regular and was found 35 cm from the incisors. Diffuse mild inflammation characterized by erythema and granularity was found in the entire examined stomach. Biopsies were taken with a cold forceps for histology. Estimated blood loss was minimal. The examined duodenum was normal. Biopsies were taken with a cold forceps for histology. Estimated blood loss was minimal. Impression: - Normal esophagus. - Z-line regular, 35 cm from the incisors. - Gastritis. Biopsied. - Normal examined duodenum. Biopsied. Recommendation: - [facility]. - Perform a colonoscopy at appointment to be scheduled. Garima Rajput D.O. Garima Rajput, 10/19/2018 12:27:48 PM This report has been signed electronically. Note Initiated On: 10/19/2018 12:10 PM Number of Addenda: 0 I attest to the content of the Intraoperative Record and orders documented therein, exceptions below {[id number]}
--- NOTE | 2018-10-19 12:29 | Communication Note ---
Date of Service: October 19, 2018 Patient underwent upper endoscopy this afternoon. The exam was notable for mild gastritis. No cause of bleeding seen today. I would recommend further eval uation with a colonoscopy. Bowel preparation to be written for an examination on Friday.
--- NOTE | 2018-10-19 12:55 | Anesthesiology Progress Note ---
Date of Service October 19, 2018 Anesthesia Post Procedure Vital Signs Vital Signs: Temp Pulse Pulse Resp BP BP BP 10/19/18 12:40 57 L 16 106/60 10/19/18 12:25 36.8 C 63 63 16 92/56 L 92/56 L 10/19/18 11:55 36.8 C 64 64 16 104/45 L 104/45 L 10/19/18 11:25 37.3 C 60 18 116/73 10/19/18 11:10 36.9 C 62 16 108/67 10/19/18 10:49 37 C 62 16 108/69 10/19/18 08:54 37.1 C 62 16 103/68 10/19/18 08:45 36.9 C 65 16 119/73 10/19/18 08:20 37.1 C 71 16 110/73 10/19/18 08:09 37.0 C 70 16 116/73 10/19/18 08:02 65 10/19/18 07:46 36.9 C 73 16 125/64 10/19/18 07:18 36.9 C 74 16 114/71 10/19/18 04:00 36.6 C 73 20 101/63 10/19/18 01:45 36.6 C 73 16 127/81 10/19/18 00:52 71 18 107/66 10/18/18 23:17 79 18 91/58 L 10/18/18 23:11 75 20 120/72 10/18/18 21:25 75 17 119/72 10/18/18 20:30 75 10/18/18 19:50 36.8 C 94 H 20 132/74 Pulse Ox 10/19/18 12:40 98 10/19/18 12:25 96 10/19/18 11:55 97 10/19/18 11:25 100 10/19/18 11:10 98 10/19/18 10:49 99 10/19/18 08:54 99 10/19/18 08:45 97 10/19/18 08:20 98 10/19/18 08:09 97 10/19/18 08:02 10/19/18 07:46 96 10/19/18 07:18 98 10/19/18 04:00 99 10/19/18 01:45 98 10/19/18 00:52 95 10/18/18 23:17 98 10/18/18 23:11 99 10/18/18 21:25 97 10/18/18 20:30 98 10/18/18 19:50 100 Pain Intensity Medial Abdomen: Pain Intensity: 6 Transfer of Care Handoff Completed per policy Notes Mental Status: alert / awake / arousable and participated in evaluation Patient Amnestic to Procedure: Yes Nausea / Vomiting: adequately controlled Pain: adequately controlled Airway Patency, RR, SpO2: stable & adequate BP & HR: stable & adequate Hydration State: stable & adequate Anesthetic Complications: no major complications apparent and Pt Satisfied with anesthetic care
--- NOTE | 2018-10-19 14:18 | Communication Note ---
Date of Service: October 19, 2018 The patient's upper endoscopy showed mild gastritis but was otherwise unremarkable. Given her ascitic anemia perhaps a colonoscopy would be beneficial to evaluate for an occult colonic lesion as seen during examination 3 years ago.
--- NOTE | 2018-10-19 14:30 | Communication Note ---
Date of Service: October 19, 2018 EGD today without cause of anemia or epigastric pain. Plan: CT abd/pelvis with IV and oral contrast. Colonoscopy tomorrow by Dr. Rajput. Clear liquids po today. NPO after midnight.
[2018-10-19 15:16] LABS: Hemoglobin 10.1 g/dL (12.0-16.0)
[2018-10-19] MEDS ORDERED: MoRPHine SULFATE 2 MG/ML CARP IV PRN (16:48)
[2018-10-19] MEDS ORDERED: LAVAGE SOLUTION 4000ML PO SCH (17:00)
[2018-10-19] MEDS ORDERED: IOVERSOL 100ml IV PRN (17:12)
--- NOTE | 2018-10-19 17:25 | Hospitalist Progress Note ---
Date of Service October 19, 2018 Assessment & Plan (1) Epigastric abdominal pain: (2) Anemia: Possible acute blood loss secondary to GI bleed Possible underlying peptic ulcer disease, history of H. pylori infection 2 years ago Pressure stable 2 units of packed RBCs ordered, repeat H&H in the afternoon Protonix IV, GI consulted, plan for EGD PRN analgesics DVT prophylaxis SCDs only in light of possible GI bleed Disposition Pending Anticipate discharge to home medically stable Subjective Follow-up for abdominal pain, anemia, possible GI bleed Seen resting in bed, not in distress Appears tired States she still has persistent abdominal pain, relieved by PRN analgesics No BMs overnight, positive intermittent nausea Denies chest pain, shortness of breath, dizziness No other symptoms Review of Systems Review of Systems: All systems reviewed & are unremarkable except as noted in HPI & below Physical Exam Physical Exam: General- oriented x 3, not in distress, speaks in sentences with no effort or accessory muscle use Eyes- anicteric Neck- no JVD Lungs- clear breath sounds bilaterally, no rales/wheezes Heart- normal rate, regular rhythm; no murmurs Abdomen- normal bowel sounds, nondistended, soft, mild epigastric tenderness Extremities- no pretibial edema, no calf tenderness Neuro- alert, oriented x 3; no gross focal neurologic deficits Skin- warm & dry Results & Data Vital Signs (Past 12 Hours) Vital Signs Temp Pulse Pulse Resp BP BP Pulse Ox 10/19/18 15:52 36.7 C 60 16 115/76 97 10/19/18 15:28 60 10/19/18 12:55 62 16 111/61 98 10/19/18 12:40 57 L 16 106/60 98 10/19/18 12:25 36.8 C 63 63 16 92/56 L 92/56 L 96 10/19/18 11:55 36.8 C 64 64 16 104/45 L 104/45 L 97 10/19/18 11:25 37.3 C 60 18 116/73 100 10/19/18 11:10 37.1 C 59 L 16 103/68 98 10/19/18 10:49 37 C 62 16 108/69 99 10/19/18 08:54 37.1 C 62 16 103/68 99 10/19/18 08:45 36.9 C 65 16 119/73 97 10/19/18 08:20 37.1 C 71 16 110/73 98 10/19/18 08:09 37.0 C 70 16 116/73 97 10/19/18 08:02 65 10/19/18 07:46 36.9 C 73 16 125/64 96 10/19/18 07:18 36.9 C 74 16 114/71 98 Laboratory Results Laboratory Results - last 24 hr 10/18/18 10/18/18 10/18/18 20:32 20:32 23:30 WBC 8.04 RBC 3.75 L Hgb 8.1 L Hct 27.7 L MCV 73.9 L MCH 21.6 L MCHC 29.2 L RDW Std Deviation 46.7 H RDW Coeff of Jane 17.3 H Plt Count 230 MPV 9.9 Immature Gran % (Auto) 0.1 Neut % (Auto) 61.9 Lymph % (Auto) 30.5 [place] % (Auto) 6.1 Eos % (Auto) 0.9 Baso % (Auto) 0.5 Immature Gran # (Auto) 0.01 Neut # (Auto) 4.98 Lymph # (Auto) 2.45 [place] # (Auto) 0.49 Eos # (Auto) 0.07 Baso # (Auto) 0.04 Hypochromasia Present Microcytosis Present Ovalocytes Sodium 140 Potassium 3.6 Chloride 107 Carbon Dioxide 25 Anion Gap 8.0 BUN 10 Creatinine 0.67 Est Cr Clr Drug Dosing 93.8 Est GFR ( Amer) 120.5 Est GFR (Non-Af Amer) 103.9 BUN/Creatinine Ratio 14.9 Glucose 92 Calcium 8.8 Magnesium 2.1 Total Bilirubin 0.9 Direct Bilirubin 0.2 AST 18 ALT 22 Alkaline Phosphatase 67 Troponin I < 0.015 Total Protein 7.6 Albumin 3.7 Globulin 3.9 Albumin/Globulin Ratio 1.0 Lipase 174 Blood Type O Positive Antibody Screen NEGATIVE Crossmatch See Detail 10/19/18 10/19/18 10/19/18 05:15 05:15 05:15 WBC 5.94 RBC 3.39 L Hgb 7.3 L 7.4 L Hct 25.2 L 25.3 L MCV 74.6 L MCH 21.8 L MCHC 29.2 L RDW Std Deviation 47.7 H RDW Coeff of Jane 17.5 H Plt Count 201 MPV 10.1 Immature Gran % (Auto) 0.2 Neut % (Auto) 61.3 Lymph % (Auto) 30.3 [place] % (Auto) 7.2 Eos % (Auto) 0.7 Baso % (Auto) 0.3 Immature Gran # (Auto) 0.01 Neut # (Auto) 3.64 Lymph # (Auto) 1.80 [place] # (Auto) 0.43 Eos # (Auto) 0.04 Baso # (Auto) 0.02 Hypochromasia Microcytosis Ovalocytes 1+ Sodium 141 Potassium 3.9 Chloride 111 H Carbon Dioxide 22 Anion Gap 8.0 BUN 7 Creatinine 0.55 L Est Cr Clr Drug Dosing 114.3 Est GFR ( Amer) 128.6 Est GFR (Non-Af Amer) 110.9 BUN/Creatinine Ratio 12.6 Glucose 80 Calcium 7.6 L Magnesium 2.3 Total Bilirubin Direct Bilirubin AST ALT Alkaline Phosphatase Troponin I Total Protein Albumin Globulin Albumin/Globulin Ratio Lipase Blood Type Antibody Screen Crossmatch 10/19/18 15:00 WBC RBC Hgb 10.1 L Hct 33.0 L MCV MCH MCHC RDW Std Deviation RDW Coeff of Jane Plt Count MPV Immature Gran % (Auto) Neut % (Auto) Lymph % (Auto) [place] % (Auto) Eos % (Auto) Baso % (Auto) Immature Gran # (Auto) Neut # (Auto) Lymph # (Auto) [place] # (Auto) Eos # (Auto) Baso # (Auto) Hypochromasia Microcytosis Ovalocytes Sodium Potassium Chloride Carbon Dioxide Anion Gap BUN Creatinine Est Cr Clr Drug Dosing Est GFR ( Amer) Est GFR (Non-Af Amer) BUN/Creatinine Ratio Glucose Calcium Magnesium Total Bilirubin Direct Bilirubin AST ALT Alkaline Phosphatase Troponin I Total Protein Albumin Globulin Albumin/Globulin Ratio Lipase Blood Type Antibody Screen Crossmatch (1) Anemia Anemia type: unspecified type Qualified Code(s): D64.9 - Anemia, unspecified
--- NOTE | 2018-10-19 17:28 | CT Scan Report ---
ABDOMEN AND PELVIS CT WITH IV AND ORAL CONTRAST CT DOSE: 378.60 mGy.cm HISTORY: Generalized abdominal pain TECHNIQUE: Multiaxial CT images of the abdomen and pelvis were performed following the use of intrave nous and oral contrast. A dose lowering technique was utilized adhering to the principles of ALARA. COMPARISON STUDY: Abdomen and pelvis CT 10/08/2015. FINDINGS: The lung bases are clear. No pneumoperitoneum. No pneumatosis. No suspicious lytic or blast ic osseous lesions. Tiny fat-containing umbilical hernia, unchanged. Mild hepatic steatosis. The gall bladder, spleen, adrenal glands, pancreas, and left kidney are unremarkable. A 5 mm hypodense lesion within the lower pole the right kidney. This is technically too small to characterize but favors a cy st. The bladder is unremarkable. Slightly heterogeneous enhancement to the uterus. This remains uncha nged. Trace pelvic free fluid. Similar appearance to the hypodense lesion/cyst within the left ovary. No bowel wall thickening or obstruction. Normal appendix. IMPRESSION: 1. No bowel wall thickening or obstruction. 2. Normal appendix. 3. Trace pelvic free fluid. This is likely physiologic. 4. Lobulated and hypodense appearance to the left kidney which appears normal in size. This favors sm all ovarian cysts. This is similar to the prior study. 5. Mild hepatic steatosis. Electronically signed by: Doe Loco M.D. 10/19/2018 5:26 PM
[2018-10-19 17:56] LABS: Hematocrit (blood only) 32.1 % (37-47)
[2018-10-19] MEDS ORDERED: POLYETHYLENE (MIRALAX) 17 GM PACK PO SCH (21:15)
[2018-10-19] MEDS: PROMETHAZINE HCL 12.5 MG in SODIUM CHLORIDE 0.9% 50 ML IV PRN (21:45)
[2018-10-19 23:24] LABS: Hematocrit (blood only) 32.3 % (37-47); Hemoglobin 9.8 g/dL (12.0-16.0)
[2018-10-20] MEDS: SODIUM CHLORIDE 0.9% 1000ML 1,000 ML IV SCH ×3 (00:56→19:29)
[2018-10-20] MEDS: PANTOprazole 40 MG in DEXTROSE 5% 100 ML IV SCH ×4 (02:44→16:41)
[2018-10-20] MEDS: ONDANSETRON INJ 2 MG/ML 2 ML VIAL IV PRN (02:50)
[2018-10-20] MEDS: HYDROmorphone INJ 0.5 MG/0.5 ML SYR IV PRN ×4 (02:55→23:48)
[2018-10-20] MEDS ORDERED: POLYETHYLENE (MIRALAX) 17 GM PACK PO SCH (03:15)
[2018-10-20 08:43] LABS: Basophils # (auto) 0.03 K/uL (0-0.2); Basophils % (auto) 0.5 %; Eosinophils % (auto) 1.7 %; Hemoglobin 10.4 g/dL (12.0-16.0); Immature Granulocytes # (auto) 0.01 K/uL (0.00-0.02); Immature Granulocytes % (auto) 0.2 %; Lymphocytes # (auto) 1.75 K/uL (1.2-3.4); Lymphocytes % (auto) 28.9 %; Mean Corpuscular Hgb Conc 30.6 g/dL (32-36); Mean Corpuscular Volume 76.2 fL (80-100); Mean Platelet Volume 10.6 fL (7.4-10.4); Monocytes # (auto) 0.51 K/uL (0.11-0.59); Monocytes % (auto) 8.4 %; Neutrophils # (auto) 3.66 K/uL (1.4-6.5); Neutrophils % (auto) 60.3 %; Platelet Count 232 K/uL (130-400); RDW Coefficient of Variation 17.5 % (11.5-14.5); RDW Standard Deviation 48.8 fL (36.4-46.3); Red Blood Count 4.46 M/uL (4.2-5.4); White Blood Count 6.06 K/uL (4.8-10.8)
[2018-10-20] MEDS: PROMETHAZINE HCL 12.5 MG in SODIUM CHLORIDE 0.9% 50 ML IV PRN ×2 (08:53→23:47)
[2018-10-20 09:42] LABS: BUN Creatinine Ratio 6.2 (10-20); Blood Urea Nitrogen 4 mg/dl (7-18); Calcium 8.5 mg/dl (8.5-10.1); Carbon Dioxide 23 mmol/L (21-32); Chloride 111 mmol/L (98-107); Creatinine Clr Calc Pharmacy 86.8 ml/min; Est GFR (African American) 114.8; Glucose 87 mg/dl (70-99); Sodium 139 mmol/L (136-145)
[2018-10-20 09:49] LABS: Iron 96 mcg/dl (35-150); Troponin I < 0.015 ng/ml (0-0.045)
--- NOTE | 2018-10-20 13:07 | Anesthesiology Consultation ---
Date of Service October 20, 2018 Assessment & Plan (1) Encounter for pre-operative examination: Chart Review Chart Review: Acceptable Risk for Surgery Consults Requested none ASA ASA3 Proposed Anesthesia Anesthesia Type: MAC Risk / Benefits Reviewed With: PT / POA / Parent / Guardian, Accepts Plan and Informed Consent Obtained History Surgery Operation Date: 10/19/18 09:30 Proposed Procedures p Esophagogastroduodenoscopy Dr Regulo Rajput Operation Date: 10/20/18 09:30 Proposed Procedures p Colonoscopy Dr Regulo Rajput Height/Weight Height: 5 ft 1 in Weight: 72.2 kg Allergies Allergy/AdvReac Type Severity Reaction Status Date / Time amoxicillin Allergy Severe THROAT Verified 10/18/18 20:18 SWELLING clavulanic acid Allergy Severe THROAT Verified 10/18/18 20:18 SWELLING Penicillins Allergy Severe THROAT Verified 10/18/18 20:18 SWELLING morphine AdvReac Intermediate NAUSEA Verified 10/18/18 20:18 codeine AdvReac Mild VOMITING Verified 10/18/18 20:18 Medications Home Medications Medication Instructions Recorded Confirmed Last Taken acetaminophen [Tylenol] 325 mg PO BID PRN 02/23/18 10/18/18 Unknown PNV cmb#95-ferrous fumarate-FA 1 tab PO DAILY 10/18/18 10/18/18 Unknown [] Active Medications Generic Name Dose Route Start Last Admin Trade Name Freq PRN Reason Stop Dose Admin Hydromorphone HCl 0.5 mg 10/19/18 00:19 10/20/18 08:53 Dilaudid IV 11/02/18 00:18 0.5 mg Q3H PRN Administration Pain Pantoprazole Sodium 40 mg/ 100 mls @ 20 mls/hr 10/19/18 00:30 10/20/18 14:28 Dextrose IV 10/21/18 05:29 Infused Q5H PRISCILA Infusion Sodium Chloride 1,000 mls @ 125 mls/hr 10/19/18 01:31 10/20/18 14:28 Nss 1000ml IV 11/18/18 01:30 0 mls/hr .Q8H PRISCILA Infusion Promethazine HCl 12.5 mg/ 50.5 mls @ 202 mls/hr 10/19/18 08:42 10/20/18 09:24 Sodium Chloride IV 11/18/18 08:41 Infused Q6H PRN Infusion Nausea And Vomiting Ioversol 90 ml 07/22/19 17:12 10/19/18 17:13 Optiray 320 100ml IV 10/23/18 17:11 90 ml ONCE PRN Administration Interaction Checking Ondansetron HCl 4 mg 10/19/18 00:19 10/20/18 02:50 Zofran IV 11/18/18 00:18 4 mg Q6H PRN Administration Nausea NPO Date Last Intake of Fluids: 10/19/18 Time Last Intake of Fluids: 08:00 Date Last Intake of Solids: 10/18/18 Time Last Intake of Solids: 14:00 Past Medical History Medical History GI symptoms H. pylori infection Exercise / Class Metabolic Activity II 4-5 Yardwork/Stairs/Walk up hill Past Family History Family History Other Stomach cancer Past Surgical History Surgical History H/O colonoscopy History of esophagogastroduodenoscopy (EGD) S/P tonsillectomy Past Anesthesia History No Hx of Anesthesia Complications and No Family Hx of Anesthesia Complications History of PONV No Hx of PONV and No Hx of Motion Sickness Social History Smoking Status: Never smoker Hx Alcohol Use: Yes Alcohol type: beer and wine alcohol intake frequency: holidays/special occasions only Hx Substance Use: No Physical Exam Vital Signs Last Vital Signs Temp 98.2 F 10/20/18 14:41 Pulse 68 10/20/18 14:41 Resp 18 10/20/18 14:41 BP 130/55 L 10/20/18 14:41 Pulse Ox 99 10/20/18 14:41 ENMT Mouth: no dentition abnormality Thyromental Distance: > or= 3.5 Finger Breadths Mallampati Class: II Neck normal visual inspection Respiratory normal respiratory effort Auscultation: lungs clear to auscultation bilaterally Cardiovascular Rate/Rhythm: regular rate and regular rhythm Testing Laboratory Results 10/20/18 08:29 10/20/18 08:29 Blood Type O Positive 10/18/18 23:30 Antibody Screen NEGATIVE 10/18/18 23:30 Electrocardiogram Date: 10/18/18 Findings: + NSR @ (74) Normal sinus rhythm Normal ECG When compared with ECG of 18-SEP-2016 21:30, No significant change was found
[2018-10-20] MEDS ORDERED: LIDOCAINE HCL 2% 2 ML VIAL/AMP(20MG/ML) INFIL ONE (15:12)
[2018-10-20] MEDS ORDERED: PROPOFOL IV EMULSION 10 MG/ML 20 ML VIAL IV ONE ×2 (15:12→15:48)
--- NOTE | 2018-10-20 15:25 | History & Physical Bridge Note ---
Date of Service October 20, 2018 History & Physical Bridge Note I have examined the patient, reviewed the History & Physical and in the interval since the performance of the History & Physical I have noted the following changes of clinical significance: no changes noted. Patient with unexplained anemia. We are planning to do a repeat colonoscopy today to look for evidence of AVMs. I discussed the risks of the procedure to include bleeding, infection, perforation and pain.
--- NOTE | 2018-10-20 15:49 | Communication Note ---
Date of Service: October 20, 2018 Patient underwent colonoscopy today. 2 small colonic polyps were seen in addition to internal hemorrhoids. The visible portion of the terminal ileum was within normal limits. Recommendations Consider a UA For urologic causes of anemia Outpatient wireless capsule endoscopy to be scheduled
--- NOTE | 2018-10-20 15:52 | GI REPORT ---
Patient Name: Yamileth Garcia Procedure Date: 10/20/2018 3:28 PM Date of : 1970 Admit Type: Inpatient Age: 47 Gender: Female Attending MD: Garima Rajput DO Procedure: Colonoscopy Providers: Garima Rajput DO Referring MD: Wm Turner Indications: Unexplained iron deficiency anemia Medicines: Monitored Anesthesia Care Complications: No immediate complications. Estimated blood loss: Minimal. Estimated Blood Loss: Estimated blood loss was minimal. Procedure: Pre-Anesthesia Assessment: - Prior to the procedure, a History and Physical was performed, and patient medications, allergies and sensitivities were reviewed. The patient's tolerance of previous anesthesia was reviewed. - The risks and benefits of the procedure and the sedation options and risks were discussed with the patient. All questions were answered and informed consent was obtained. - Patient identification and proposed procedure were verified prior to the procedure by the physician, the nurse and the artificial flower maker. The procedure was verified in the procedure room. - Pre-procedure physical examination revealed no contraindications to sedation. - ASA Grade Assessment: III - A patient with severe systemic disease. - After reviewing the risks and benefits, the patient was deemed in satisfactory condition to undergo the procedure. - The anesthesia plan was to use monitored anesthesia care (MAC). - Immediately prior to administration of medications, the patient was re-assessed for adequacy to receive sedatives. - The heart rate, respiratory rate, oxygen saturations, blood pressure, adequacy of pulmonary ventilation, and response to care were monitored throughout the procedure. - The physical status of the patient was re-assessed after the procedure. After I obtained informed consent, the scope was passed under direct vision. Throughout the procedure, the patient's blood pressure, pulse, and oxygen saturations were monitored continuously. The scope was introduced through the anus and advanced to the terminal ileum. The colonoscopy was performed without difficulty. The patient tolerated the procedure well. The quality of the bowel preparation was adequate to identify polyps 6 mm and larger in size. Findings: The perianal and digital rectal examinations were normal. Pertinent negatives include normal sphincter tone. The terminal ileum appeared normal. A 3 mm polyp was found in the ascending colon. The polyp was sessile. The polyp was removed with a cold snare. Resection and retrieval were complete. Estimated blood loss was minimal. A 5 mm polyp was found in the transverse colon. The polyp was sessile. The polyp was removed with a cold snare. Resection and retrieval were complete. Estimated blood loss was minimal. Internal hemorrhoids were found during retroflexion. The hemorrhoids were mild. The exam was otherwise without abnormality. Impression: - The examined portion of the ileum was normal. - One 3 mm polyp in the ascending colon, removed with a cold snare. Resected and retrieved. - One 5 mm polyp in the transverse colon, removed with a cold snare. Resected and retrieved. - Internal hemorrhoids. - The examination was otherwise normal. Recommendation: - [facility]. - Advance diet as tolerated today. - Await pathology results. - Repeat colonoscopy in 3 years for surveillance. -No cause of anemia seen today. Will make arrangements for wireless capsule endoscopy however given negative exam in the past I would suggest evaluation for gynecologic or urinary cause of her anemia. Garima Rajput D.O. Garima Rajput, DO 10/20/2018 3:51:53 PM This report has been signed electronically. Note Initiated On: 10/20/2018 3:28 PM Number of Addenda: 0 I attest to the content of the Intraoperative Record and orders documented therein, exceptions below {[id number]}
--- NOTE | 2018-10-20 16:07 | Anesthesiology Progress Note ---
Date of Service October 20, 2018 Anesthesia Post Procedure Vital Signs Vital Signs: Temp Pulse Pulse Resp BP Pulse Ox 10/20/18 15:57 60 16 102/65 100 10/20/18 15:53 64 16 97/58 L 97 10/20/18 14:41 36.8 C 68 18 130/55 L 99 10/20/18 11:54 37.0 C 62 16 104/66 97 10/20/18 10:38 66 10/20/18 07:22 37 C 63 18 105/65 97 10/20/18 03:35 36.9 C 59 L 16 110/72 98 10/19/18 23:51 36.9 C 74 18 104/67 98 10/19/18 23:30 66 10/19/18 20:01 37.1 C 61 20 106/67 98 Pain Intensity Medial Abdomen: Pain Intensity: 8 Transfer of Care Handoff Completed per policy Notes Mental Status: alert / awake / arousable Patient Amnestic to Procedure: Yes Nausea / Vomiting: adequately controlled Pain: adequately controlled Airway Patency, RR, SpO2: stable & adequate BP & HR: stable & adequate Hydration State: stable & adequate Anesthetic Complications: no major complications apparent
--- NOTE | 2018-10-20 16:50 | Hospitalist Progress Note ---
Date of Service October 20, 2018 Assessment & Plan (1) Epigastric abdominal pain: (2) Anemia: Possible acute blood loss secondary to GI bleed Possible underlying peptic ulcer disease, history of H. pylori infection 2 years ago Hemodynamically stable 2 units of packed RBCs ordered, hemoglobin increased from 8-10, remains stable EGD: Positive gastritis, biopsy obtained Status colonoscopy today: Pending Protonix IV GI consulted PRN analgesics Already on iron supplement, iron level 96 DVT prophylaxis SCDs only in light of possible GI bleed Disposition Pending Anticipate discharge to home medically stable, cleared by gastroenterology Subjective Follow-up for epigastric pain, anemia Seen resting in bed, not in distress, appears weak Still has epigastric pain Denies nausea vomiting No melena overnight Denies other symptoms Review of Systems Review of Systems: All systems reviewed & are unremarkable except as noted in HPI & below Physical Exam Physical Exam: General- oriented x 3, not in distress, speaks in sentences with no effort or accessory muscle use Eyes- anicteric Neck- no JVD Lungs- clear BS bilaterally, no crackles, no wheezing Heart- normal rate, regular rhythm; no murmurs Abdomen- normal bowel sounds, nondistended, soft, moderate tenderness to the epigastric area Extremities- no pretibial edema, no calf tenderness Neuro- alert, oriented x 3; no gross focal neurologic deficits Skin- warm & dry Results & Data Vital Signs (Past 12 Hours) Vital Signs Temp Pulse Pulse Resp BP Pulse Ox 10/20/18 16:19 65 16 115/55 L 100 10/20/18 16:07 65 16 112/72 100 10/20/18 15:57 60 16 102/65 100 10/20/18 15:53 64 16 97/58 L 97 10/20/18 14:41 36.8 C 68 18 130/55 L 99 10/20/18 11:54 37.0 C 62 16 104/66 97 10/20/18 10:38 66 10/20/18 07:22 37 C 63 18 105/65 97 (1) Anemia Anemia type: unspecified type Qualified Code(s): D64.9 - Anemia, unspecified
[2018-10-20] MEDS ORDERED: CYCLOBENZAPRINE HCL 5 MG TAB PO STA (18:25)
[2018-10-20] MEDS ORDERED: CYCLOBENZAPRINE HCL 5 MG TAB PO PRN (18:28)
[2018-10-20] MEDS: LIDOCAINE 5% 1 PATCH TD SCH (19:09)
[2018-10-21] MEDS: SODIUM CHLORIDE 0.9% 1000ML 1,000 ML IV SCH ×4 (04:21→22:55)
[2018-10-21 08:13] LABS: Basophils # (auto) 0.03 K/uL (0-0.2); Basophils % (auto) 0.5 %; Eosinophils # (auto) 0.14 K/uL (0-0.5); Eosinophils % (auto) 2.2 %; Hematocrit (blood only) 31.6 % (37-47); Hemoglobin 9.5 g/dL (12.0-16.0); Immature Granulocytes # (auto) 0.02 K/uL (0.00-0.02); Immature Granulocytes % (auto) 0.3 %; Lymphocytes # (auto) 1.25 K/uL (1.2-3.4); Lymphocytes % (auto) 19.6 %; Mean Corpuscular Hgb Conc 30.1 g/dL (32-36); Mean Corpuscular Volume 75.8 fL (80-100); Mean Platelet Volume 10.2 fL (7.4-10.4); Monocytes # (auto) 0.55 K/uL (0.11-0.59); Monocytes % (auto) 8.6 %; Neutrophils # (auto) 4.39 K/uL (1.4-6.5); Neutrophils % (auto) 68.8 %; Platelet Count 191 K/uL (130-400); RDW Coefficient of Variation 18.1 % (11.5-14.5); RDW Standard Deviation 49.9 fL (36.4-46.3); Red Blood Count 4.17 M/uL (4.2-5.4); White Blood Count 6.38 K/uL (4.8-10.8)
[2018-10-21] MEDS: ONDANSETRON INJ 2 MG/ML 2 ML VIAL IV PRN (08:15)
[2018-10-21] MEDS: HYDROmorphone INJ 0.5 MG/0.5 ML SYR IV PRN ×2 (08:15→19:56)
[2018-10-21] MEDS: LIDOCAINE 5% 1 PATCH TD SCH (08:16)
[2018-10-21] MEDS: PANTOprazole 40 MG TAB PO SCH (08:16)
[2018-10-21 08:47] LABS: BUN Creatinine Ratio 9.4 (10-20); Calcium 8.1 mg/dl (8.5-10.1); Creatinine Clr Calc Pharmacy 92.9 ml/min; Est GFR (African American) 119.9; Est GFR (Non-African American) 103.4; Potassium 4.1 mmol/L (3.5-5.1)
[2018-10-21] MEDS ORDERED: CYCLOBENZAPRINE HCL 5 MG TAB PO SCH (09:00)
--- NOTE | 2018-10-21 10:10 | Anesthesiology Progress Note ---
Date of Service October 21, 2018 Anesthesia Post Procedure Vital Signs Vital Signs: Temp Pulse Pulse Resp BP Pulse Ox 10/21/18 07:44 36.7 C 66 20 119/77 99 10/21/18 05:40 36.8 C 57 L 19 119/80 98 10/21/18 00:59 73 10/21/18 00:12 36.7 C 68 19 105/70 98 10/20/18 19:42 37 C 69 18 129/80 98 10/20/18 16:19 65 16 115/55 L 100 10/20/18 16:07 65 16 112/72 100 10/20/18 15:57 60 16 102/65 100 10/20/18 15:53 64 16 97/58 L 97 10/20/18 14:41 36.8 C 68 18 130/55 L 99 10/20/18 11:54 37.0 C 62 16 104/66 97 10/20/18 10:38 66 Notes Mental Status: alert / awake / arousable and participated in evaluation Nausea / Vomiting: adequately controlled Pain: adequately controlled Airway Patency, RR, SpO2: stable & adequate BP & HR: stable & adequate Hydration State: stable & adequate
[2018-10-21] MEDS ORDERED: KETOROLAC TROMETHAMINE 15 MG/ML VIAL IV ONE (11:04)
--- NOTE | 2018-10-21 11:05 | Hospitalist Progress Note ---
Date of Service October 21, 2018 Assessment & Plan (1) Epigastric abdominal pain: (2) Anemia: Possible acute blood loss secondary to GI bleed Hemodynamically stable 2 units of packed RBCs ordered, will globin increased, remains stable around 9- 10 s/p EGD: Positive mild gastritis, biopsy obtained s/p colonoscopy: +2 polyps, biopsies obtained Protonix IV converted to p.o. No melena, hematochezia was admitted Will need video capsule endoscopy as an outpatient Possible pleurisy, costochondritis Patient reports epigastric pain radiating to the right lower rib is still persistent, since admission Dilaudid, flexible not relieving the pain Will obtain ESR, CRP to rule out possible pericarditis Will obtain d-dimer to rule out PE In light of suspected GI bleed, will start NSAIDs carefully, Toradol 15 mg 1 dose now, ibuprofen 400 mg p..o 3 times daily, discussed with the GI service Monitor response Microcytic hypochromic anemia Already on iron supplement, iron level 96 Check folate, vitamin B12, peripheral smear: Pending Continue close outpatient follow-up DVT prophylaxis SCDs only in light of possible GI bleed Ambulation encouraged Disposition Pending Anticipate discharge to home medically stable, cleared by gastroenterology Case discussed with patient in detail and at length, all questions answered Patient comfortable, agreeable, understanding the plan of care Subjective Follow-up for anemia, epigastric pain Seen sitting up in bed, not in distress, appears concerned Still having significant pain, 8 out of 10, sharp/burning, mostly in the manub rium radiating to the lower right rib, worse with inspiration and with movement Denies shortness of breath, palpitations, dizziness No melena, hematochezia, nausea vomiting, tolerating diet well No other symptoms Review of Systems Review of Systems: All systems reviewed & are unremarkable except as noted in HPI & below Physical Exam Physical Exam: General- oriented x 3, not in distress, speaks in sentences with no effort or accessory muscle use Eyes- anicteric Neck- no JVD Lungs- clear breath sounds bilaterally, no wheezing, no crackles Heart- normal rate, regular rhythm; no murmurs Positive tenderness, manubrium, right lower ribs, no rashes Abdomen- normal bowel sounds, nondistended, soft, nontender Extremities- no pretibial edema, no calf tenderness Neuro- alert, oriented x 3; no gross focal neurologic deficits Skin- warm & dry Results & Data Vital Signs (Past 12 Hours) Vital Signs Temp Pulse Pulse Resp BP Pulse Ox 10/21/18 07:44 36.7 C 66 20 119/77 99 10/21/18 05:40 36.8 C 57 L 19 119/80 98 10/21/18 00:59 73 10/21/18 00:12 36.7 C 68 19 105/70 98 Laboratory Results Laboratory Results - last 24 hr 10/21/18 10/21/18 10/21/18 07:55 07:55 11:21 WBC 6.38 RBC 4.17 L Hgb 9.5 L Hct 31.6 L MCV 75.8 L MCH 22.8 L MCHC 30.1 L RDW Std Deviation 49.9 H RDW Coeff of Jane 18.1 H Plt Count 191 MPV 10.2 Immature Gran % (Auto) 0.3 Neut % (Auto) 68.8 Lymph % (Auto) 19.6 Barnes % (Auto) 8.6 Eos % (Auto) 2.2 Baso % (Auto) 0.5 Immature Gran # (Auto) 0.02 Neut # (Auto) 4.39 Lymph # (Auto) 1.25 Barnes # (Auto) 0.55 Eos # (Auto) 0.14 Baso # (Auto) 0.03 ESR Pending D-Dimer Sodium 142 Potassium 4.1 Chloride 112 H Carbon Dioxide 24 Anion Gap 6.0 BUN 6 L Creatinine 0.68 Est Cr Clr Drug Dosing 92.9 Est GFR ( Amer) 119.9 Est GFR (Non-Af Amer) 103.4 BUN/Creatinine Ratio 9.4 L Glucose 87 Calcium 8.1 L C-Reactive Protein 10/21/18 10/21/18 11:21 11:21 WBC RBC Hgb Hct MCV MCH MCHC RDW Std Deviation RDW Coeff of Jane Plt Count MPV Immature Gran % (Auto) Neut % (Auto) Lymph % (Auto) Barnes % (Auto) Eos % (Auto) Baso % (Auto) Immature Gran # (Auto) Neut # (Auto) Lymph # (Auto) Barnes # (Auto) Eos # (Auto) Baso # (Auto) ESR D-Dimer Pending Sodium Potassium Chloride Carbon Dioxide Anion Gap BUN Creatinine Est Cr Clr Drug Dosing Est GFR ( Amer) Est GFR (Non-Af Amer) BUN/Creatinine Ratio Glucose Calcium C-Reactive Protein Pending (1) Anemia Anemia type: unspecified type Qualified Code(s): D64.9 - Anemia, unspecified
[2018-10-21 11:45] LABS: D Dimer 900 ug/L FEU (0-500)
--- NOTE | 2018-10-21 13:55 | Gastroenterology Progress Note ---
Date of Service October 21, 2018 Assessment & Plan (1) Abdominal pain: Because CT abdomen and pelvis with IV and oral contrast as well as EGD and colonoscopy without cause of the pain, would pursue other causes of chest and abdominal pain. Appreciate primary hospitalist management of the pain and plan for CTA. Would also consider ovarian cyst as possibly contributing to the pain. Present on Admission?: Yes (2) Anemia: Eventual outpatient VCE. This is been ordered. Our office will be contacting her to arrange. GI will sign off. Please notify us if gross GI bleeding or further drop in Hb/Hct. Present on Admission?: Yes Supervising Physician Co-Signing Physician Notes I saw and evaluated the patient. Given her abdominal discomfort I would suggest addition of Bentyl 10 mg twice daily in addition to a right upper quadrant ultrasound. Subjective Ms. Garcia is a 47 yr old female admitted on 10/19 for abdominal pain and acute on chronic anemia. EGD, colonoscopy w/o cause of pain or anemia. Mild gastritis only. No gross GI bleeding. Today, increasing chest pain, worse on the lower right anterior ribs, worse with twisting, turning. Very tender on palpation of these ribs. Review of Systems Constitutional: + body aches and + fatigue; no fever, no chills and no weakness Physical Exam Constitutional: WD/WN, vitals as above Eyes: PERRL, conjunctivae normal, anicteric sclerae ENMT: external ear and nose normal, oropharynx normal Neck: trachea midline, no thyromegaly Respiratory: normal respiratory effort, lungs clear to auscultation Cardiovascular: RRR, no murmur, no edema Gastrointestinal (Abdomen): Bowel sounds normoactive, abdomen is not distended, abdomen is soft with moderate epigastric tenderness though increased tenderness on palpation of the right lower anterior ribs compared to the abdomen. Skin: no rashes, warm and dry Neurologic: PERRL, EOMI, accommodation nl, no face palsy, no dysarthria Psychiatric: A+Ox3, euthymic affect Affect: + anxious affect (very concerned about her pain - wanting it to resolve. ) Lymphatic: no cervical or axillary lymphadenopathy Results & Data Vital Signs (Past 12 Hours) Vital Signs Temp Pulse Pulse Resp BP Pulse Ox 10/21/18 12:32 37.1 C 73 18 104/69 97 07/24/19 08:00 61 10/21/18 07:44 36.7 C 66 20 119/77 99 10/21/18 05:40 36.8 C 57 L 19 119/80 98 Laboratory Results Hb 8->7.4 + 2 units of RBCs -> 10.4-> 9.5 D Dimer [address] 10/19: 1. No bowel wall thickening or obstruction. 2. Normal appendix. 3. Trace pelvic free fluid. This is likely physiologic. 4. Lobulated and hypodense appearance to the left kidney which appears normal in size. This favors small ovarian cysts. This is similar to the prior study. 5. Mild hepatic steatosis. (1) Anemia Anemia type: unspecified type Qualified Code(s): D64.9 - Anemia, unspecified
[2018-10-21] MEDS ORDERED: OPTIRAY 320 125ml IV PRN (14:07)
--- NOTE | 2018-10-21 14:25 | CT Scan Report ---
CT ANGIOGRAM OF THE CHEST CLINICAL HISTORY: Atypical chest pain. COMPARISON STUDY: Chest x-ray dated 10/18/2018. TECHNIQUE: Following the IV administration of 115 cc of Optiray 320, CT angiogram of the chest was pe rformed from the upper abdomen to the thoracic inlet utilizing the pulmonary embolus protocol. Images are reviewed in the axial, sagittal, and coronal planes. 3-D MIPS images are created and assessed. I V contrast was administered without complication. A dose lowering technique was utilized adhering to the principles of ALARA. CT DOSE: 233.88 mGy.cm FINDINGS: Thyroid: Imaged portions of the thyroid gland are normal in size and attenuation. Thoracic aorta: The thoracic aorta is normal in caliber and demonstrates standard 3-vessel arch anato my. No dissection is seen. Pulmonary vasculature: The pulmonary trunk is normal in caliber. There are no filling defects identif ied in main, lobar, or segmental pulmonary branches to suggest pulmonary embolus. Heart: The heart is top normal in size and without pericardial effusion. Lungs and pleural spaces: There are trace pleural effusions with associated atelectasis. No airspace consolidation is seen typical for pneumonia. The trachea and central airways are clear. Mediastinum: There is no mediastinal lymphadenopathy. Sophie: Clear. Axillae: There is no axillary lymphadenopathy. Upper abdomen: Partially visualized upper abdominal viscera is within normal limits. Skeletal structures: No lytic or blastic bony lesions are seen. IMPRESSION: 1. There is no evidence of pulmonary embolus in the main, lobar, or segmental pulmonary arteries. 2. There is no airspace consolidation typical for pneumonia. 3. Trace pleural effusions. Electronically signed by: Kieran Suárez M.D. 10/21/2018 2:24 PM
[2018-10-21 14:40] LABS: Albumin Level 3.3 gm/dl (3.4-5.0); Bilirubin Direct 0.3 mg/dl (0-0.2); Bilirubin,Total 1.3 mg/dl (0.2-1); Total Protein 6.8 gm/dl (6.4-8.2)
--- NOTE | 2018-10-21 15:05 | Ultrasound Report ---
BILATERAL LOWER EXTREMITY VENOUS DOPPLER HISTORY: Acute pain and swelling of the lower extremities r/o dvt COMPARISON STUDY: CTA of the chest of same day. FINDINGS: There is normal compressibility, flow, and augmentation within the bilateral lower extremit y deep venous systems. IMPRESSION: No DVT within the right or left lower extremity. Electronically signed by: Donnell Lewis M.D. 10/21/2018 3:03 PM
--- NOTE | 2018-10-21 15:06 | Ultrasound Report ---
ULTRASOUND RIGHT UPPER QUADRANT ABDOMEN CLINICAL HISTORY: Right upper quadrant abdominal pain. COMPARISON STUDY: Abdominal CT dated 10/19/2018. TECHNIQUE: Real-time, grayscale, and color flow sonography of the right upper quadrant of the abdomen was performed. Images are reviewed in the transverse and longitudinal planes. FINDINGS: Liver: The liver is top normal in size and demonstrates heterogeneously increased echotexture suggest ing steatosis. There is no intrahepatic biliary ductal dilatation. The main portal vein is patent. Gallbladder: The gallbladder is normal in appearance. No gallstones are identified. There is no gallb ladder wall thickening or pericholecystic fluid. A sonographic Lewis's sign is reportedly absent. Th e common bile duct measures up to 0.5 cm in diameter. Pancreas: Visualized portions of the pancreatic head and body are normal in appearance. The splenic v ein is patent. Right kidney: Survey images of the right kidney demonstrate normal size and echotexture. There is no hydronephrosis. Ascites: None. IMPRESSION: 1. No acute sonographic abnormality is identified in the right upper quadrant. No gallstones are seen . 2. Hepatic steatosis. Electronically signed by: Kieran Suárez M.D. 10/21/2018 3:04 PM
[2018-10-21] MEDS: PROMETHAZINE HCL 12.5 MG in SODIUM CHLORIDE 0.9% 50 ML IV PRN (16:48)
[2018-10-21] MEDS: IBUPROFEN 200 MG TAB PO PRN (18:30)
[2018-10-21 20:46] LABS: Appearance Urine Clear (Clear); Bacteria Urine Automated Negative (Negative); Bilirubin Urine Negative (Negative); Blood Urine Negative (Negative); Cast Urine Automated 0 /lpf (0-5); Color Urine Yellow; Glucose Urine UA Negative (Negative); Ketones Urine Negative (Negative); Leukocyte Esterase Urine Trace (Negative); Nitrite Urine Negative (Negative); Protein Urine Negative (Negative); RBC Urine Automated 0-4 /hpf (0-4); Specific Gravity Urine 1.012 (1.000-1.030); Urobilinogen Urine Negative (Negative); pH Urine 7.5 (4.5-7.5)
[2018-10-22] MEDS: SODIUM CHLORIDE 0.9% 1000ML 1,000 ML IV SCH ×2 (07:24→14:56)
[2018-10-22] MEDS: PANTOprazole 40 MG TAB PO SCH (08:07)
[2018-10-22] MEDS: ONDANSETRON INJ 2 MG/ML 2 ML VIAL IV PRN (08:08)
[2018-10-22 08:12] LABS: Basophils # (auto) 0.03 K/uL (0-0.2); Basophils % (auto) 0.4 %; Eosinophils # (auto) 0.13 K/uL (0-0.5); Eosinophils % (auto) 1.7 %; Hematocrit (blood only) 31.2 % (37-47); Hemoglobin 9.6 g/dL (12.0-16.0); Immature Granulocytes # (auto) 0.01 K/uL (0.00-0.02); Immature Granulocytes % (auto) 0.1 %; Lymphocytes # (auto) 1.39 K/uL (1.2-3.4); Lymphocytes % (auto) 18.5 %; Mean Corpuscular Hgb Conc 30.8 g/dL (32-36); Mean Corpuscular Volume 76.7 fL (80-100); Mean Platelet Volume 10.2 fL (7.4-10.4); Monocytes # (auto) 0.57 K/uL (0.11-0.59); Monocytes % (auto) 7.6 %; Neutrophils # (auto) 5.39 K/uL (1.4-6.5); Neutrophils % (auto) 71.7 %; Platelet Count 200 K/uL (130-400); RDW Coefficient of Variation 18.3 % (11.5-14.5); RDW Standard Deviation 50.9 fL (36.4-46.3); Red Blood Count 4.07 M/uL (4.2-5.4); White Blood Count 7.52 K/uL (4.8-10.8)
[2018-10-22] MEDS: IBUPROFEN 200 MG TAB PO PRN (08:15)
[2018-10-22 08:41] LABS: Folate (Folic Acid) 16.01 ng/ml (>5.38)
[2018-10-22 08:48] LABS: BUN Creatinine Ratio 14.4 (10-20); Calcium 8.2 mg/dl (8.5-10.1); Creatinine Clr Calc Pharmacy 97.2 ml/min; Est GFR (African American) 121.7
[2018-10-22] MEDS: LIDOCAINE 5% 1 PATCH TD SCH (09:36)
[2018-10-22] MEDS: HYDROmorphone INJ 0.5 MG/0.5 ML SYR IV PRN (09:46)
--- NOTE | 2018-10-22 15:05 | Hospitalist Progress Note ---
Date of Service October 22, 2018 Assessment & Plan (1) Epigastric abdominal pain: No significant cause of epigastric pain found out Have gastritis negative for H. pylori, with history of HP CT of the abdomen and pelvis, ultrasound of the abdomen, CTA of the chest were unremarkable for any acute findings Has hepatic steatosis Was advised to have outpatient GI follow-up (2) Anemia: Possible acute blood loss secondary to GI bleed Hemodynamically stable 2 units of packed RBCs ordered, will globin increased, remains stable around 9- 10 s/p EGD: Positive mild gastritis, biopsy obtained s/p colonoscopy: +2 polyps, biopsies obtained Remains stable medical Protonix IV converted to p.o. No melena, hematochezia was admitted Will need video capsule endoscopy as an outpatient Possible pleurisy, costochondritis Patient reports epigastric pain radiating to the right lower rib is still persistent, since admission Dilaudid, flexible not relieving the pain Will obtain ESR, CRP to rule out possible pericarditis Will obtain d-dimer to rule out PE In light of suspected GI bleed, will start NSAIDs carefully, Toradol 15 mg 1 dose now, ibuprofen 400 mg p..o 3 times daily, discussed with the GI service Monitor response Microcytic hypochromic anemia Already on iron supplement, iron level 96 Check folate, vitamin B12, peripheral smear: Pending Continue close outpatient follow-up DVT prophylaxis SCDs only in light of possible GI bleed Ambulation encouraged Disposition Pending Anticipate discharge to home medically stable, cleared by gastroenterology Case discussed with patient in detail and at length, all questions answered Patient comfortable, agreeable, understanding the plan of care Will discharge home today Subjective 10/22 Patient was seen and examined in medical telemetry unit Still complains right upper quadrant pain Has been complaining of abdominal bloating after food for a long time Relevant investigations came out to be negative Has been ambulating without any significant symptoms Review of Systems Review of Systems: All systems reviewed and unremarkable except as noted below Gastrointestinal: + abdominal pain (Right upper quadrant) and + bloating Physical Exam Physical Exam: No apparent distress at rest Constitutional: WD/WN, vitals as above Eyes: PERRL, conjunctivae normal, anicteric sclerae ENMT: Mouth: no dentition abnormality Mallampati Class: II Neck: trachea midline, no thyromegaly normal visual inspection Respiratory: normal respiratory effort, lungs clear to auscultation normal respiratory effort; no cough Auscultation: lungs clear to auscultation bilaterally Cardiovascular: RRR, no murmur, no edema Rate/Rhythm: regular rate and regular rhythm Gastrointestinal (Abdomen): Inspection/Auscultation: abdomen normal to inspection, normal bowel sounds and + hypoactive bowel sounds Percussion/Palpation: + abdomen tender (Minimal upper quadrants especially right upper without guarding) and abdomen soft Rectal Exam: + heme positive stool Musculoskeletal: no cyanosis or clubbing, extremities motor strength 5/5 Spine: normal cervical ROM and no pain with cervical ROM Skin: no rashes, warm and dry Neurologic: PERRL, EOMI, accommodation nl, no face palsy, no dysarthria moves all extremities Psychiatric: A+Ox3, euthymic affect Orientation: alert and oriented x 3 Affect: + anxious affect (very concerned about her pain - wanting it to resolve. ) Lymphatic: no cervical or axillary lymphadenopathy Results & Data Vital Signs (Past 12 Hours) Vital Signs Temp Pulse Pulse Resp BP BP Pulse Ox 10/22/18 12:05 36.8 C 73 16 139/87 97 10/22/18 08:15 36.8 C 69 16 116/75 98 10/22/18 08:00 55 L 10/22/18 04:00 36.8 C 61 20 101/66 98 Laboratory Results Short CBC 10/22/18 Range/Units 07:52 WBC 7.52 (4.8-10.8) K/uL Hgb 9.6 L (12.0-16.0) g/dL Hct 31.2 L (37-47) % Plt Count 200 (130-400) K/uL BMP 10/22/18 07:52 Sodium 141 Potassium 4.0 Chloride 112 H Carbon Dioxide 22 BUN 9 Creatinine 0.65 Glucose 87 Calcium 8.2 L Urine 10/21/18 Range/Units 20:10 Urine Color Yellow Urine Appearance Clear (Clear) Urine pH 7.5 (4.5-7.5) Ur Specific [place] 1.012 (1.000-1.030) Urine Protein Negative (Negative) Urine Glucose (UA) Negative (Negative) (1) Anemia Anemia type: unspecified type Qualified Code(s): D64.9 - Anemia, unspecified
--- NOTE | 2018-10-23 08:24 | Discharge Summary ---
Date of Service October 23, 2018 Admission HPI Per Admitting Provider DICTATED BY: Betito Suárez MD DATE OF ADMISSION: 10/19/2018 CHIEF COMPLAINT: Abdominal pain. HISTORY OF PRESENT ILLNESS: This is a 47-year-old female with past medical history significant for high triglycerides, allergic rhinitis, iron deficiency anemia, who presents with epigastric abdominal pain. The patient says she had similar kind of episode 2 years ago when EGD was done and she was found to have H. pylori and she was treated with p.o. Flagyl and clarithromycin. At that time, she was also found to have anemia, iron deficiency, and also she had some hemorrhagic cyst at that time and heavy menses and she received IV iron sucrose at that time and her hemoglobin improved. She says right now her menses are normal, but since last few weeks she is again having same epigastric abdominal pain. She takes vitamins. Since last couple of weeks on and off she has some black stools. Denies any bright red blood in the rectum. No nausea, no vomiting, but she has shortness of breath, not feeling well. Appetite is down, but she gained some weight. Denies any recent hematuria. Normal bladder movements. No burning micturition. No headache, no blurred vision, no earache, no runny nose, no sore throat, no difficulty swallowing, no chest pain. Has some cough. No fever, no chills. Currently resting comfortable and hemodynamically stable. Admission Exam Per Admitting Provider GENERAL: The patient is alert and oriented, not in acute distress. VITAL SIGNS: Temperature 36.8, pulse 79, respiratory rate 18, blood pressure 91/58, oxygen 98% room air. HEENT: No pallor, no icterus. Pupils equal, round, and reactive to light. NECK: No JVD, no neck masses, no carotid bruits. CARDIOVASCULAR: S1, S2 heard, regular rate and rhythm, no murmur, no gallop. RESPIRATORY SYSTEM: Normal AP diameter. No accessory muscle use. No wheezing, no crackles. ABDOMEN: Soft, bowel sounds present. Epigastric tenderness present. Mild guarding, no rigidity, no distention. CENTRAL NERVOUS SYSTEM: Cranial nerves II-XII grossly intact. Nonfocal. EXTREMITIES: No edema, no erythema. Principal Diagnosis Abdominal pain-no definite cause found and negative EGD and colonoscopy, iron deficiency anemia Discharge Exam Constitutional WD/WN, vitals as above Eyes PERRL, conjunctivae normal, anicteric sclerae ENMT Mouth: no dentition abnormality Mallampati Class: II Neck trachea midline, no thyromegaly normal visual inspection Respiratory normal respiratory effort, lungs clear to auscultation normal respiratory effort; no cough Auscultation: lungs clear to auscultation bilaterally Cardiovascular RRR, no murmur, no edema Rate/Rhythm: regular rate and regular rhythm Gastrointestinal (Abdomen) Inspection/Auscultation: abdomen normal to inspection, normal bowel sounds and + hypoactive bowel sounds Percussion/Palpation: + abdomen tender (Minimal upper quadrants especially right upper without guarding) and abdomen soft Rectal Exam: + heme positive stool Musculoskeletal no cyanosis or clubbing, extremities motor strength 5/5 Spine: normal cervical ROM and no pain with cervical ROM Skin no rashes, warm and dry Neurologic PERRL, EOMI, accommodation nl, no face palsy, no dysarthria moves all extremities Psychiatric A+Ox3, euthymic affect Orientation: alert and oriented x 3 Affect: + anxious affect (very concerned about her pain - wanting it to resolve. ) Lymphatic no cervical or axillary lymphadenopathy Discharge Data Allergies Allergy/AdvReac Type Severity Reaction Status Date / Time amoxicillin Allergy Severe THROAT Verified 10/18/18 20:18 SWELLING clavulanic acid Allergy Severe THROAT Verified 10/18/18 20:18 SWELLING Penicillins Allergy Severe THROAT Verified 10/18/18 20:18 SWELLING morphine AdvReac Intermediate NAUSEA Verified 10/18/18 20:18 codeine AdvReac Mild VOMITING Verified 10/18/18 20:18 Consultations 10/18/18 23:22 ED Decision to Admit Stat 10/19/18 08:00 Consult Gastroenterology Routine Procedures Performed Operation Date: 10/19/18 09:30 Actual Procedures p EGD Biopsy Cytology - Garima Rajput Operation Date: 10/20/18 09:30 Actual Procedures p Colonoscopy Polypectomy - Garima Rajput Ordered Studies 10/19/18 14:26 CT abd pelvis oral and IV con Routine 10/21/18 12:06 CT angio chest PE protocol Stat US venous doppler LE BI Stat 10/21/18 14:16 US abdomen limited Routine Hospital Course (1) Epigastric abdominal pain: No significant cause of epigastric pain found out Have gastritis negative for H. pylori, with history of HP CT of the abdomen and pelvis, ultrasound of the abdomen, CTA of the chest were unremarkable for any acute findings Has hepatic steatosis Was advised to have outpatient GI follow-up (2) Anemia: Possible acute blood loss secondary to GI bleed Hemodynamically stable 2 units of packed RBCs ordered, will globin increased, remains stable around 9- 10 s/p EGD: Positive mild gastritis, biopsy obtained s/p colonoscopy: +2 polyps, biopsies obtained Remains stable medical Protonix IV converted to p.o. No melena, hematochezia was admitted Will need video capsule endoscopy as an outpatient Possible pleurisy, costochondritis Patient reports epigastric pain radiating to the right lower rib is still persistent, since admission Dilaudid, flexible not relieving the pain Will obtain ESR, CRP to rule out possible pericarditis Will obtain d-dimer to rule out PE In light of suspected GI bleed, will start NSAIDs carefully, Toradol 15 mg 1 dose now, ibuprofen 400 mg p..o 3 times daily, discussed with the GI service Monitor response Microcytic hypochromic anemia Already on iron supplement, iron level 96 Check folate, vitamin B12, peripheral smear: Pending Continue close outpatient follow-up DVT prophylaxis SCDs only in light of possible GI bleed Ambulation encouraged Disposition Pending Anticipate discharge to home medically stable, cleared by gastroenterology Case discussed with patient in detail and at length, all questions answered Patient comfortable, agreeable, understanding the plan of care Will discharge home today Total Time Total Time Spent Total Time Spent (In Minutes): 35 minutes Total Time Includes: Examination of the Patient, Discharge Planning, Medication Reconciliation and Communication With Other Providers Discharge Plan Discharge Items Patient Disposition: Home - Self-Care Reason For Visit: ABD PAIN Discharge Diagnosis: Abdominal pain-no definite cause found and negative EGD and colonoscopy, iron deficiency anemia Condition: Good Discharge Goals: Decrease discomfort, Improve function and Increase independence Activity: Resume your previous activity Non-emergency contact: Primary Care Provider Call non-emergency contact if: you have any medication questions and your symptoms worsen Follow-up/Referrals: Justine Tello DO [Primary Care Provider] - 10/28/18 12:45 pm (Your appointment is with Dr. Real. GI will call for an appointment/test) Diet: Low Fat Addtl Provider Instructions: New medications: Bentyl, Protonix and Iron Prescriptions: New pantoprazole 40 mg Tablet,Delayed Release (Dr/Ec) 40 mg PO QAM 30 Days Qty: 30 RF: 0 dicyclomine 10 mg capsule 10 mg PO BID PRN (Reason: abdominal pain) Qty: 30 RF: 0 ferrous sulfate [iron] 325 mg (65 mg iron) tablet 325 mg PO BID Qty: 60 RF: 0 Continued acetaminophen [Tylenol] 325 mg Tablet 325 mg PO BID PRN (Reason: Unknown) RF: 0 PNV [id number] fumarate-FA [] 28 mg iron- 800 mcg Tablet 1 tab PO DAILY RF: 0 Stand-Alone Forms: Call Back Authorization, [facility], Work/School Release (Inpt) Discharge Orders: Discharge Order (Routine); Ordered 10/22/18 Ordered By: Sal Gaines Admission Data Admit Date/Time: 10/19/18 00:19 Attending Provider: Sal Gaines Admit Provider: Betito Suárez Primary Care Provider: Justine Tello Other Providers: Betito Suárez ; Garima Rajput ; Wm Turner Service: Telemetry Medical Other Interventions: Discharge Summary Assessment (RN) Last Done: 10/22/18 15:19 DC Date/Time DO NOT enter until pt leaves facility: 10/22/18 16:00
== END 2018-10-22 16:00 | disposition home or self-care (01) | DRG 392 ==
LOC: ED 19:48 → 2N 10-19 00:19 → SUATTDRO 10-19 00:19 → 2N 10-19 01:05